=== PATIENT | male | born 1975 | race Caucasian/White ===

== ENCOUNTER → 2018-05-23 07:31 | Outpatient (CLI) | payer OTHER, MEDICAID, SELFPAY ==
[2018-05-23 15:41] LABS: Blood Urea Nitrogen 23 mg/dL (7-18); Calcium 8.9 mg/dL (8.5-10.1); Carbon Dioxide 25 mmol/L (21.0-32.0); Chloride 105 mmol/L (98-107); Estimated Glomerular Filt Rate 67 ml/min (>60); GFR (African American) 81 ML/MIN (>60); Glucose 108 mg/dL (74-106); Sodium 140 mmol/L (136-145)
== END ==
PROVIDERS: Visit Provider Physician Assistant
DX: I10 Essential (primary) hypertension (principal); M62.838 Other muscle spasm
CPT/HCPCS: 36415; 80048; 83735

== ENCOUNTER → 2018-06-26 16:32 | Outpatient (CLI) | payer OTHER, MEDICAID, SELFPAY ==
--- NOTE | 2018-06-26 | XR_ITS ---
XR chest 2V HISTORY: Cough and congestion ITS.REASON: VIRAL URI ORDERING PHYSICIAN: Kiara Bermudez PATIENT AGE: 42 years COMPARISON: 07/14/2017 FINDINGS: The cardiomediastinal silhouette and pulmonary vascularity are within normal limits. Minimal atelectatic changes are present in the left lung base. There are some fibrotic changes in the right upper lobe. Calcified granuloma is present in the right lower lobe. No acute bony anomalies. IMPRESSION: Mild left basilar atelectasis with chronic changes
[2018-06-26 16:48] LABS: Basophils % 0.7 % (0.1-2.0); Eosinophils # 0.1 K/mm3 (0.0-0.4); Eosinophils % 1.1 % (0.1-12.0); Hematocrit 44.7 % (42.0-52.0); Hemoglobin 15.3 g/dL (14.1-18.0); Lymphocytes # 1.6 K/mm3 (0.7-4.5); Lymphocytes % 27.1 K/mm3 (10-50); Mean Corpuscular HGB Conc 34.1 g/dL (31.8-35.4); Mean Corpuscular Hemoglobin 30.6 pg (27.0-31.2); Mean Corpuscular Volume 89.8 fl (80-94); Mean Platelet Volume 7.1 fl (7.4-10.4); Monocytes # 0.4 K/mm3 (0.1-1.0); Monocytes % 6.8 % (1.7-9.3); Neutrophils # 3.7 K/mm3 (1.8-7.8); Neutrophils % 64.3 % (37.0-80.0); Platelet Count 245 K/mm3 (142-424); Red Blood Count 4.98 M/mm3 (4.60-6.20); Red Cell Distribution Width 13.7 % (11.5-17.5); White Blood Count 5.8 K/mm3 (4.8-10.8)
[2018-06-26 17:03] LABS: Alanine Aminotransferase 44 U/L (12-78); Albumin Level 3.6 gm/dL (3.4-5.0); Albumin/Globulin Ratio 0.8 (1.1-1.8); Alkaline Phosphatase 81 U/L (46-116); Anion Gap 12.5 mEq/L (5-15); Aspartate Amino Transferase 23 U/L (15-37); Bilirubin,Total 0.5 mg/dL (0.2-1.0); Blood Urea Nitrogen 18 mg/dL (7-18); Calcium 9.2 mg/dL (8.5-10.1); Carbon Dioxide 27 mmol/L (21.0-32.0); Chloride 100 mmol/L (98-107); Creatinine,Serum 1.52 mg/dL (0.70-1.30); Estimated Glomerular Filt Rate 51 ml/min (>60); GFR (African American) 62 ML/MIN (>60); Globulin 4.4 gm/dl (1.3-3.2); Glucose 114 mg/dL (74-106); Potassium 3.5 mmoL/L (3.5-5.1); Sodium 136 mmol/L (136-145)
== END ==
PROVIDERS: PCP Nurse Practitioner Family; Visit Provider Nurse Practitioner Family
DX: Z00.00 Encounter for general adult medical examination without abnormal findings (principal); J06.9 Acute upper respiratory infection, unspecified; R05 Cough; I95.1 Orthostatic hypotension
CPT/HCPCS: 36415; 71046; 80053; 85025

== ENCOUNTER → 2018-06-29 15:21 | Outpatient (CLI) | payer OTHER, MEDICAID, SELFPAY ==
[2018-06-29 15:59] LABS: Alanine Aminotransferase 39 U/L (12-78); Albumin Level 3.3 gm/dL (3.4-5.0); Albumin/Globulin Ratio 0.8 (1.1-1.8); Alkaline Phosphatase 76 U/L (46-116); Anion Gap 11.2 mEq/L (5-15); Aspartate Amino Transferase 14 U/L (15-37); Bilirubin,Total 0.4 mg/dL (0.2-1.0); Blood Urea Nitrogen 17 mg/dL (7-18); Calcium 8.7 mg/dL (8.5-10.1); Carbon Dioxide 28 mmol/L (21.0-32.0); Chloride 105 mmol/L (98-107); Estimated Glomerular Filt Rate 56 ml/min (>60); GFR (African American) 68 ML/MIN (>60); Globulin 4.1 gm/dl (1.3-3.2); Glucose 95 mg/dL (74-106); Potassium 4.2 mmoL/L (3.5-5.1); Sodium 140 mmol/L (136-145); Total Protein,Serum 7.4 gm/dL (6.4-8.2)
== END ==
PROVIDERS: PCP Nurse Practitioner Family; Visit Provider Nurse Practitioner Family
DX: J06.9 Acute upper respiratory infection, unspecified (principal); R79.89 Other specified abnormal findings of blood chemistry
CPT/HCPCS: 36415; 80053

== ENCOUNTER → 2018-07-10 07:50 | Outpatient (CLI) | payer OTHER, MEDICAID, SELFPAY ==
[2018-07-10 15:29] LABS: Alanine Aminotransferase 40 U/L (12-78); Albumin Level 3.6 gm/dL (3.4-5.0); Albumin/Globulin Ratio 0.9 (1.1-1.8); Alkaline Phosphatase 77 U/L (46-116); Anion Gap 15.2 mEq/L (5-15); Aspartate Amino Transferase 16 U/L (15-37); Bilirubin,Total 0.5 mg/dL (0.2-1.0); Blood Urea Nitrogen 13 mg/dL (7-18); Calcium 8.7 mg/dL (8.5-10.1); Carbon Dioxide 25 mmol/L (21.0-32.0); Chloride 108 mmol/L (98-107); Creatinine,Serum 1.18 mg/dL (0.70-1.30); Estimated Glomerular Filt Rate 68 ml/min (>60); GFR (African American) 83 ML/MIN (>60); Globulin 3.8 gm/dl (1.3-3.2); Glucose 95 mg/dL (74-106); Potassium 4.2 mmoL/L (3.5-5.1); Sodium 144 mmol/L (136-145); Total Protein,Serum 7.4 gm/dL (6.4-8.2)
== END ==
LOC: LAB 07:52 → LAB.CARL 07-11 07:22
PROVIDERS: PCP Nurse Practitioner Family; Visit Provider Nurse Practitioner Family
DX: R79.89 Other specified abnormal findings of blood chemistry (principal)
CPT/HCPCS: 36415; 80053

== ENCOUNTER → 2018-07-28 09:31 | Outpatient (CLI) | payer OTHER, MEDICAID, SELFPAY ==
[2018-07-28 13:59] LABS: Alanine Aminotransferase 31 U/L (12-78); Albumin Level 3.4 gm/dL (3.4-5.0); Alkaline Phosphatase 73 U/L (46-116); Aspartate Amino Transferase 15 U/L (15-37); Bilirubin,Total 0.5 mg/dL (0.2-1.0); Blood Urea Nitrogen 13 mg/dL (7-18); Calcium 8.8 mg/dL (8.5-10.1); Carbon Dioxide 25 mmol/L (21.0-32.0); Chloride 107 mmol/L (98-107); Chol/HDL Ratio 3.4 (1-3.5); Cholesterol 143 mg/dL (140-200); Creatinine,Serum 1.07 mg/dL (0.70-1.30); Estimated Glomerular Filt Rate 77 ml/min (>60); GFR (African American) 93 ML/MIN (>60); Globulin 3.5 gm/dl (1.3-3.2); Glucose 100 mg/dL (74-106); HDL Cholesterol 42 mg/dL (27-67); LDL Cholesterol 84 mg/dL (0-130); Sodium 140 mmol/L (136-145); Total Protein,Serum 6.9 gm/dL (6.4-8.2); Triglycerides 87 mg/dL (30-200); VLDL Cholesterol 17 mg/dL (0-40)
== END ==
PROVIDERS: PCP Nurse Practitioner Family; Visit Provider Nurse Practitioner Family
DX: Z00.00 Encounter for general adult medical examination without abnormal findings (principal); I10 Essential (primary) hypertension; E78.2 Mixed hyperlipidemia
CPT/HCPCS: 36415; 80053; 80061

== ENCOUNTER → 2019-12-04 13:15 | Outpatient (CLI) | payer OTHER, SELFPAY ==
[2019-12-04 14:33] LABS: Alanine Aminotransferase 36 U/L (12-78); Albumin/Globulin Ratio 1.1 (1.1-1.8); Alkaline Phosphatase 85 U/L (46-116); Anion Gap 14.2 mEq/L (5-15); Aspartate Amino Transferase 20 U/L (15-37); Bilirubin,Total 0.4 mg/dL (0.2-1.0); Blood Urea Nitrogen 18 mg/dL (7-18); Calcium 9.2 mg/dL (8.5-10.1); Carbon Dioxide 28 mmol/L (21.0-32.0); Chloride 103 mmol/L (98-107); Chol/HDL Ratio 5.7 (1-3.5); Cholesterol 223 mg/dL (140-200); Creatinine,Serum 1.23 mg/dL (0.70-1.30); Estimated Glomerular Filt Rate 65 ml/min (>60); GFR (African American) 78 ML/MIN (>60); Globulin 3.6 gm/dl (1.3-3.2); Glucose 86 mg/dL (74-106); HDL Cholesterol 39 mg/dL (27-67); LDL Cholesterol 160 mg/dL (0-130); Potassium 4.2 mmoL/L (3.5-5.1); Sodium 141 mmol/L (136-145); Total Protein,Serum 7.6 gm/dL (6.4-8.2); Triglycerides 118 mg/dL (30-200); VLDL Cholesterol 24 mg/dL (0-40)
== END ==
PROVIDERS: Visit Provider Nurse Practitioner Family
DX: Z00.00 Encounter for general adult medical examination without abnormal findings (principal); E78.2 Mixed hyperlipidemia; I10 Essential (primary) hypertension
CPT/HCPCS: 36415; 80053; 80061

== ENCOUNTER → 2019-12-13 13:51 | Outpatient (CLI) | payer OTHER, SELFPAY ==
--- NOTE | 2019-12-13 13:59 | CT_ITS ---
PROCEDURE: CT CHEST WO CON CLINICAL INDICATION: RUL NODULE Follow-up pulmonary nodule COMPARISON: CXR2V XR chest 2V from 06/26/2018 TECHNIQUE: Axial images obtained with sagittal and coronal reformats. All CT scans at the facility use one or more dose reduction, viz: automated exposure control, ma/kV adjustment per patient size (including targeted exams where dose is matched to indication, i.e. head), or iterative reconstruction technique. FINDINGS: HEART AND MEDIASTINAL STRUCTURES: There is a mildly prominent pretracheal lymph node measuring 2.1 x 1.9 cm. LUNGS AND PLEURAL SPACES: Minimal atelectatic/fibrotic changes noted in the right upper lobe laterally. There is a calcified granuloma in the superior segment of the right lower lobe. Minimal atelectatic or fibrotic change noted in the right middle lobe medially. There is a faint nodular opacity in the left upper lobe laterally at 4 mm image 32 series 3. This is nonspecific. There is some patchy alveolar opacification in the left lower lobe. BONY STRUCTURES: No acute bony abnormalities apparent. UPPER ABDOMEN: Unremarkable. ADDITIONAL FINDINGS: There are few scattered small lymph nodes in the axilla in there is a small subcutaneous metallic density along the left lower chest wall anteriorly IMPRESSION: 1. Patchy infiltrate in the left lower lobe. 2. Calcified granuloma in the right upper lobe with scattered atelectatic or fibrotic changes. 3. Mildly prominent lymph node in the pretracheal region nonspecific. 3 to six-month follow-up may confirm short term stability Dictated by: Mihai Good MD 12/16/2019 08:00 Electronically signed by Mihai Good MD in [place] 12/16/2019 08:02
== END ==
PROVIDERS: PCP Nurse Practitioner Family; Visit Provider Nurse Practitioner Family
DX: R91.1 Solitary pulmonary nodule (principal)
CPT/HCPCS: 71250

== ENCOUNTER → 2020-01-21 06:25 | Outpatient (CLI) | payer OTHER, SELFPAY ==
--- NOTE | 2020-01-21 | CA_ITS ---
APPROVED REPORT Exam: Exercise Treadmill Technologist: gabriel campoverde, Ht: 5 ft 8 in Wt: 220 lbs BSA: 2.13 m2 HR: 74 bpm BP: 154/97 mmHg Indications: CP, SOB Medical History Medications: Asa,,,,, Lipitor,,,,, Bisprolol,,,,, RanTIDINE,,,,, Allergies: No known drug allergies Cardiac Risk Factors: HTN, Hyperlipidemia, FHX of CAD, Smoking Stress Test Details Test: Cesar HR Resting HR: 83 bpm Max Heart Rate (APMHR): 178 bpm Max HR Achieved: 157 bpm Target HR (85% APMHR): 151 bpm % of APMHR: 88 Recovery HR: 105 bpm BP Resting BP: 126/91 mmHg Max BP: 183/100 mmHg Recovery BP: 183.0/100.0 mmHg ECG Resting ECG: Sinus rhythm, RBBB Clinical Exercise duration: 10:32 min Highest Stage Achieved: Stage 4: 4.2 mph at 16% grade. Exercise capacity: 12.8 METs Stress ECG Conclusion Cesar Protocol completed. Test stopped due to SOB at peak exercise, which resolved during recovery. No chest pain. No ectopy noted. 1.5mm ST depression noted during recovery. Images to follow. Test Summary REST . . . . . . . Standing REST . . . . . . . Sitting REST 11:01 0.0 0.0 83 . 126/ 91 . . Stage 1 01:00 10.0 1.7 102 . . . . Stage 1 02:00 10.0 1.7 99 . . . . Stage 1 03:00 10.0 1.7 103 . 162/ 98 . . Stage 2 01:00 12.0 2.5 112 . . . . Stage 2 02:00 12.0 2.5 115 . . . . Stage 2 03:00 12.0 2.5 117 . 160/ 94 . . Stage 3 01:00 14.0 3.4 128 . . . . Stage 3 02:00 14.0 3.4 133 . . . . Stage 3 03:00 14.0 3.4 140 . 170/ 92 . . Stage 4 . . . . . . . Cardiolite injected Stage 4 01:00 16.0 4.2 155 . . . . Stage 4 01:32 16.0 4.2 156 . . . Stop exercise at 10:32 RECOVERY 01:00 0.0 0.0 136 . . . . RECOVERY 02:00 0.0 0.0 111 . . . . RECOVERY 03:00 0.0 0.0 108 . 183/100 . . RECOVERY 04:00 0.0 0.0 101 . 168/ 88 . . RECOVERY 04:59 0.0 0.0 96 . 158/ 90 . . Electronically signed by : Jacoby Chatterjee, 01/21/2020 19:58:49
--- NOTE | 2020-01-21 06:34 | NM_ITS ---
APPROVED REPORT Exam: Nuclear Stress Test Indication: Chest pain, SOB, HTN, High cholesterol, Former tobacco use, Family history Patient Location: Outpatient Stress Tech: Jodi Huang [place] Tech:Kasey Zee, ARRT, RT (R)(N) Ht: 5 ft 8 in Wt: 220 lbs BSA: 2.13 m2 BMI: 33.4 History: Chest pain, SOB, HTN, High cholesterol, Former tobacco use, Family history Procedure: Patient exercised on Cesar protocol 10:32 minutes and sec, resting heart rate 74 bpm, resting blood pressure 126/91 mmHg, with exercise maximum heart rate achived was 157 bpm which is Greater than 85 % of the maximum predicted heart rate and blood pressure was 183/100 mmHg. Test was stopped due to SOB. Patient denied any complaint of chest pain. Patient has Good exercise capacity, achieved 12.8 METs of workload on treadmill, the blood pressure response to exercise was Adequate. Electrocardiogram Resting electrocardiogram showed sinus rhythm, with exercise there is less than 1.[address] segment depression noted from the baseline EKG. The EKG portion of the exercise Myoview is negative for ischemia. Cardiac Stress and Resting SPECT Images: Cardiac Stress and Resting SPECT images were obtained using technetium 99m Myoview 30.05 mCi stress and 10.24 mCi at rest. Gated SPECT with analysis of segmental wall motion and calculation of the ejection fraction also done. Cardiac stress and resting SPECT images show mild fixed defect at the apex with normal coronary gated SPECT is likely secondary to soft tissue attenuation, no reversible ischemia seen. Computer derived ejection fraction is 52% with no regional wall motion abnormality, right ventricle is normal size and contractility. Conclusion: 1. The EKG portion of the exercise Myoview is negative for ischemia, patient has good exercise capacity achieved 12.8 mets of workload on treadmill, the blood pressure response to exercise was adequate, there was no exercise-induced chest discomfort. 2. No scintigraphic evidence of reversible ischemia seen, computer derived ejection fraction 52% with no regional wall motion abnormality, right ventricle is normal size and contractility 3. Likely normal exercise Myoview study. Electronically signed by : Jacoby Chatterjee, 01/21/2020 20:02:03
--- NOTE | 2020-01-21 07:19 | HMH.ITSHM ---
Current Home Medications as stated by this patient Herminio Christopher or community service representative. []RANITADINE LISINOPRIL IBUPROFEN BISOPROLOL ATORVASTATIN ASA
== END ==
PROVIDERS: PCP Nurse Practitioner Family; Visit Provider Nurse Practitioner Family
DX: R06.09 Other forms of dyspnea (principal)
CPT/HCPCS: 78452; 93017; A9502

== ENCOUNTER → 2020-01-25 13:59 | Outpatient (CLI) | payer OTHER, SELFPAY | PROVIDERS: PCP Nurse Practitioner Family; Visit Provider Nurse Practitioner Family | DX: R06.09 Other forms of dyspnea (principal) | CPT/HCPCS: 94060; 94726; 94729 ==

== ENCOUNTER 2020-02-24 20:39 | Emergency (ER) | payer OTHER, SELFPAY ==
[2020-02-24 20:53] VITALS: BP 130/70; PULSE 91; RESP 20; TEMP 36.8; O2SAT 99; BMI 32.3
--- NOTE | 2020-02-24 21:27 | HMH.EDUTC ---
[facility] [place] Clinical Impression: Finger laceration Qualifiers: Encounter type: initial encounter Finger: ring finger Damage to nail status: without damage Foreign body presence: without foreign body Laterality: left Qualified Code(s): S61.215A - Laceration without foreign body of left ring finger without damage to nail, initial encounter Disposition: Home, Self-Care Condition on Discharge: Good Instructions: DI for Laceration Repair -- Simple, DI for Laceration Repair With Dermabond Additional Instructions: Keep the wound clean and dry. Watch the for signs of infection, such as redness, swelling, drainage, fever. etc. Take tylenol or ibuprofen for pain. Follow up with your regular doctor. GO TO THE ER FOR ANY WORSENING SYMPTOMS OR CONCERNS. Referrals: July Albarran PA [Primary Care Provider] - Time of Disposition: 21:30 Medical Decision Making - Medical Records Medical records reviewed: No: I reviewed the patient's medical records. - Anibal Inquiry Pt receiving controlled substance: No Vital Signs: 02/24/20 20:53 Temperature 98.3 F Temperature Source Oral Pulse Rate [Right Brachial] 91 H Respiratory Rate 20 Blood Pressure [Right Arm] 130/70 Blood Pressure Mean [Right Arm] 90 Blood Pressure Source [Right Arm] Automatic Cuff Blood Pressure Position [Right Arm] Sitting 02 Sat by Pulse Oximetry 99 Oxygen Delivery Method Room Air [facility] [place] H[place] - General Stated complaint: AO 02/23 @ 1999 lac to left ring finger Time Seen by Provider: 02/24/20 20:55 Mode of Arrival: Ambulatory Source of Information: Patient Limitations: No Limitations Description of Symptoms (Recalled from Triage Doc. by RN): LACERATION TO LEFT RING FINGER HEENT Symptoms (Recalled from RN notes): No Resp Symptoms (Recalled from RN notes): No Skin Symptoms (Recalled from RN notes): Yes MS Symptoms (Recalled from RN notes): No Functional Status (Recalled from RN notes): WNL - History of Present Illness Provider Complaint: He was carrying some aluminum siding when he slipped and fell in mud. When he fell, he came down on a piece of the siding and it cut his left ring finger. He has been bleeding and he had trouble stopping it. - Related Data Home Medications Medication Instructions Recorded Confirmed albuterol sulfate 90 mcg/actuation 1 puff INHALATION QID 02/04/20 02/04/20 aerosol inhaler amlodipine 5 mg tablet 5 mg PO tab 02/04/20 02/04/20 budesonide-formoterol HFA 80 g INHALATION 02/04/20 02/04/20 mcg-4.5 mcg/actuation aerosol inhaler cetirizine 10 mg tablet 10 mg PO tab 02/04/20 02/04/20 fluticasone propionate 50 g INTRANASAL 02/04/20 02/04/20 mcg/actuation nasal spray,suspension omeprazole 20 mg capsule,delayed 20 mg PO cap 02/04/20 02/04/20 release Previous Rx's Medication Instructions Recorded atorvastatin 20 mg tablet 20 mg PO QDAY #90 tab 01/02/18 Allergies Allergy/AdvReac Type Severity Reaction Status Date / Time No Known Allergies Allergy Verified 02/04/20 09:07 - Worker's Comp Is this a Worker's Comp case?: No [facility] History - Hepatitis A Screen Drug use history?: No High risk sexual behaviors?: No History of sexually transmitted infection?: No Currently employed?: No Childcare worker?: No Do you have indoor plumbing?: Yes Do you have electricity?: Yes Attestation statement:: This patient has been screened for Hepatitis A risk factors. I have reviewed the patient's past medical history: Yes Medical History: Reports:: Gastroesophageal Reflux Disease(GERD), Hyperlipidemia, Hypertension Comment: ERLINDA Other Surgeries: Yes: Hernia Repair - Social History Smoking Status: Never smoker Alcohol Intake: never Alcohol Intake Frequency:: other Substance Use Type: denies use Occupational Status: other Household Members: family Family Hx:: Diabetes, Hypertension, Coronary Artery Disease ROS Obtained: Yes All systems reviewed & no additional complaints - C
[2020-02-24 21:38] VITALS: BP 130/70; PULSE 91; RESP 20; TEMP 36.8; O2SAT 99
== END 2020-02-24 21:39 | disposition home or self-care (01) ==
PROVIDERS: Emergency Provider Nurse Practitioner Family; PCP Physician Assistant
DX: S61.215A Laceration without foreign body of left ring finger without damage to nail, initial encounter (principal); W01.0XXA Fall on same level from slipping, tripping and stumbling without subsequent striking against object, initial encounter; Y92.89 Other specified places as the place of occurrence of the external cause; I10 Essential (primary) hypertension; K21.9 Gastro-esophageal reflux disease without esophagitis; E78.5 Hyperlipidemia, unspecified
CPT/HCPCS: 12001; 99201

== ENCOUNTER 2020-05-03 12:51 | Emergency (ER) | payer OTHER, SELFPAY ==
[2020-05-03 12:53] VITALS: BP 128/78; PULSE 70; RESP 16; TEMP 37.1; O2SAT 98; BMI 32.5
--- NOTE | 2020-05-03 13:08 | XR_ITS ---
PROCEDURE: XR WRIST LT MIN 3V CLINICAL INDICATION: fall Posttraumatic pain COMPARISON: No exams were available for comparison FINDINGS: Faint longitudinal lucency is present at the distal radius just medial to midline consistent with a nondisplaced fracture. There also appears to be a nondisplaced transverse component better detected on the forearm film. The distal ulna has an unremarkable appearance. No other significant anomalies. IMPRESSION: Nondisplaced distal radial fracture with intra-articular extension suspected. CT may confirm Dictated by: Mihai Good MD 05/04/2020 08:44 Electronically signed by Mihai Good MD in [place] 05/04/2020 08:44
--- NOTE | 2020-05-03 13:08 | XR_ITS ---
PROCEDURE: XR FOREARM LT 2V CLINICAL INDICATION: fall Posttraumatic pain COMPARISON: XR WRIST LT MIN 3V from 05/03/2020 FINDINGS: There is a faint longitudinal lucency involving the distal radius just medial to midline which extends to the articular surface suspicious for nondisplaced fracture. There is also a nondisplaced transverse component. CT may confirm. The joint spaces are well-preserved. No significant degenerative/arthritic changes. No erosive changes evident. Other findings:None. IMPRESSION: Nondisplaced distal radial fracture with suggestion of an intra-articular component. CT may confirm Dictated by: Mihai Good MD 05/04/2020 08:43 Electronically signed by Mihai Good MD in [place] 05/04/2020 08:43
--- NOTE | 2020-05-03 13:09 | XR_ITS ---
PROCEDURE: XR HIP LT 2-3V W/PELVIS CLINICAL INDICATION: fall Posttraumatic pain COMPARISON: No exams were available for comparison FINDINGS: No fracture or dislocation is evident. No significant degenerative change. No lytic or blastic change. Unremarkable soft tissues. IMPRESSION: No acute findings. Dictated by: Mihai Good MD 05/04/2020 08:40 Electronically signed by Mihai Good MD in [place] 05/04/2020 08:40
--- NOTE | 2020-05-03 13:09 | XR_ITS ---
PROCEDURE: XR CHEST 2V CLINICAL HISTORY: fall Posttraumatic pain COMPARISON: CXR CHEST(2 VIEWS-NOT PORTABLE) from 07/14/2017 CXR2V XR chest 2V from 06/26/2018 CT CHEST WO CON from 12/13/2019 FINDINGS: The cardiomediastinal silhouette and pulmonary vascularity are within normal limits. The lungs are clear without infiltrates, suspicious nodules, or pleural effusions. No acute bony abnormalities. IMPRESSION: No acute findings. Dictated by: Mihai Good MD 05/04/2020 08:44 Electronically signed by Mihai Good MD in [place] 05/04/2020 08:44
--- NOTE | 2020-05-03 14:58 | HMH.EDFALL ---
ED Disposition Clinical Impression: Multiple contusions Disposition: Home, Self-Care Condition on Discharge: Good Instructions: How to Prevent Falls Referrals: Kiara Bermudez APRN [Primary Care Provider] - - Critical Care Critical Care Time: No Attestation: On 05/03/20, the high probability of a clinically significant, sudden or life threatening deterioration of the following system(s) required my full and direct attention, intervention and personal management. The time I documented below is in addition to time spent performing reported procedures but includes the following listed in this critical care notation. Medical Decision Making - Medical Records Medical records reviewed: Yes: I reviewed the patient's medical records. - Anibal Inquiry Pt receiving controlled substance: No Vital Signs: 05/03/20 12:53 Temperature 98.7 F Temperature Source Oral Pulse Rate [Left Radial] 70 Respiratory Rate 16 Blood Pressure [Right Arm] 128/78 Blood Pressure Mean [Right Arm] 94 Blood Pressure Position [Right Arm] Sitting 02 Sat by Pulse Oximetry 98 Oxygen Delivery Method Room Air - Lab Data Lab results reviewed: Yes: I reviewed the patient's lab results. Orders (Tests/Meds): ED MEDICATIONS Discontinued Medications Generic Name Dose Route Start Last Admin Trade Name Kaiserq PRN Reason Stop Dose Admin Ibuprofen 600 mg 05/03/20 13:28 05/03/20 13:29 Motrin 600mg Tablet PO 05/03/20 13:29 600 mg ONCE ONE Administration ORDERS Category Date Time Status Forearm XR left 2 views [XR forearm LT 2V] Stat Exams 05/03/20 13:08 Taken XR chest 2V Stat Exams 05/03/20 13:09 Taken XR hip LT 2-3V w/pelvis Stat Exams 05/03/20 13:09 Taken XR wrist LT min 3V Stat Exams 05/03/20 13:08 Taken - Radiology Data #1 Image(s): Chest, Forearm, Wrist, Hip Preliminary Findings: Normal/NAD Fall HPI - General Chief Complaint: Fall Stated Complaint: AO 05/03/20 Fell on concrete, l arm and hip injury Time Seen by Provider: 05/03/20 14:58 Mode of Arrival: Ambulatory Source of Information: Patient Limitations: No Limitations Description of Symptoms (Recalled from ER Triage Doc. by RN): to ed per pvt car pt states fell approx 6ft off a pontoon onto concrete landing on lt side, c/o lt arm pain, lt hip and lt side rib pain. pt denies any loc. pt ambulatory states pain in hip with ambulation. - History of Present Illness HPI Narrative: 44-year-old gentleman presents the ED after a fall. Earlier today he was on a pontoon boat and fell a pontoon boat onto a cement deck. He landed on his left side. Patient is complaining about left-sided rib pain at midclavicular line. Patient is also complaining about left forearm pain and wrist pain. He is also complain about left hip pain as well. He rates the pain on all these injuries as 4 out of 10 classifies him as sharp. He states exacerbating factors include movement and relieving factors include rest. Patient has no obvious signs of trauma.Patient denies any recent cough or shortness of breath, patient denies any sore throat or headache, patient denies any loss of taste or smell, patient denies any malaise or fatigue, patient denies any abdominal pain nausea vomiting or diarrhea. - Related Data Home Medications Medication Instructions Recorded Confirmed albuterol sulfate 90 mcg/actuation 1 puff INHALATION QID 02/04/20 04/30/20 aerosol inhaler budesonide-formoterol HFA 80 g INHALATION 02/04/20 04/30/20 mcg-4.5 mcg/actuation aerosol inhaler cetirizine 10 mg tablet 10 mg PO tab 02/04/20 04/30/20 fluticasone propionate 50 g INTRANASAL 02/04/20 04/30/20 mcg/actuation nasal spray,suspension amlodipine 10 mg tablet 10 mg PO DAILY tab 04/30/20 04/30/20 doxycycline monohydrate 100 mg 100 mg PO DAILY cap 04/30/20 04/30/20 capsule famotidine 20 mg tablet 20 mg PO DAILY tab 04/30/20 04/30/20 losartan 100 mg tablet 100 mg PO DAILY tab 04/30/20
--- NOTE | 2020-05-03 15:10 | PC.NURSE ---
velcro wrist splint applied lt wrist
[2020-05-03 15:29] VITALS: BP 148/74; PULSE 78; RESP 16; TEMP 36.6; O2SAT 98
== END 2020-05-03 15:31 | disposition home or self-care (01) ==
PROVIDERS: Emergency Provider Family Medicine; PCP Nurse Practitioner Family
DX: S63.502A Unspecified sprain of left wrist, initial encounter (principal); W01.0XXA Fall on same level from slipping, tripping and stumbling without subsequent striking against object, initial encounter; Y92.89 Other specified places as the place of occurrence of the external cause; M25.552 Pain in left hip; Z79.899 Other long term (current) drug therapy; J45.909 Unspecified asthma, uncomplicated; K21.9 Gastro-esophageal reflux disease without esophagitis; E78.5 Hyperlipidemia, unspecified; I10 Essential (primary) hypertension
CPT/HCPCS: 29125; 71046; 73090; 73110; 73502; 99283

== ENCOUNTER 2020-05-05 15:30 | Outpatient (RCR) | payer OTHER, SELFPAY | END 2020-05-05 16:00 | disposition home or self-care (01) | LOC: OT 15:30 | PROVIDERS: Visit Provider Internal Medicine Adolescent Medicine | DX: M25.532 Pain in left wrist (principal); S62.102A Fracture of unspecified carpal bone, left wrist, initial encounter for closed fracture | CPT/HCPCS: 97763 ==

== ENCOUNTER → 2020-05-07 15:37 | Outpatient (CLI) | payer OTHER, SELFPAY ==
--- NOTE | 2020-05-07 15:55 | CT_ITS ---
PROCEDURE: CT WRIST LT WO CON CLINICAL HISTORY: LEFT WRIST FX Injury with pain, possible wrist fracture. COMPARISON: XR WRIST LT MIN 3V from 05/03/2020 TECHNIQUE: Axial images obtained with sagittal and coronal reformats. All CT scans at the facility use one or more dose reduction, viz: automated exposure control, ma/kV adjustment per patient size (including targeted exams where dose is matched to indication, i.e. head), or iterative reconstruction technique. FINDINGS: There is a nondisplaced longitudinal fracture through the distal aspect of the radius which involves the distal articular surface just slightly along the ulnar aspect of the distal radius. There is an additional nondisplaced fracture along the ulnar aspect of the distal radius just lateral to the radial ulnar junction. Incidental note is made of a small cyst of the lunate. IMPRESSION: Nondisplaced fracture of the distal radius as described above with intra-articular extension Dictated by: Mihai Good MD 05/08/2020 12:23 Electronically signed by Mihai Good MD in [place] 05/08/2020 12:23
== END ==
PROVIDERS: PCP Nurse Practitioner Family; Referring Provider Internal Medicine Adolescent Medicine; Visit Provider Internal Medicine Adolescent Medicine
DX: S62.102A Fracture of unspecified carpal bone, left wrist, initial encounter for closed fracture (principal)
CPT/HCPCS: 73200

== ENCOUNTER → 2020-05-28 08:59 | Outpatient (CLI) | payer OTHER, SELFPAY ==
--- NOTE | 2020-05-28 09:03 | XR_ITS ---
PROCEDURE: XR HAND LT MIN 3V CLINICAL INDICATION: hand pain Limited movement of fingers since putting of the cast. COMPARISON: No exams were available for comparison FINDINGS: The wrist and portion of the hand is immobilized in the cast, which is obscuring the bony details. No fracture or dislocation. No lytic or blastic change. There is normal mineralization. The joint spaces are well-preserved. No significant degenerative/arthritic changes. No erosive changes evident. Other findings:The fingers are seen persistently in mild flexion. IMPRESSION: 1. No fracture, bony destruction or dislocation is demonstrated. Dictated by: Angela Ramey 05/28/2020 17:56 Electronically signed by Angela Ramey in [place] 05/28/2020 17:56
--- NOTE | 2020-05-28 09:03 | XR_ITS ---
PROCEDURE: XR WRIST LT MIN 3V CLINICAL INDICATION: wrist fx COMPARISON: XR WRIST LT MIN 3V from 05/03/2020 FINDINGSNo fracture or dislocation. No lytic or blastic change. There is normal mineralization.: The wrist is placed in a cast, bony details are obscured by the overlying cast. A subtle fracture line/lucency is again seen medial to midline in the distal left radius. There is bony demineralization. The joint spaces are well-preserved. No significant degenerative/arthritic changes. No erosive changes evident. Other findings:None. IMPRESSION: 1. A subtle intra-articular healing fracture is again seen medially in the distal left radius. 2. Osteopenia. Dictated by: Angela Ramey 05/28/2020 10:31 Electronically signed by Angela Ramey in [place] 05/28/2020 10:31
== END ==
PROVIDERS: PCP Nurse Practitioner Family; Visit Provider Orthopaedic Surgery
DX: S52.502A Unspecified fracture of the lower end of left radius, initial encounter for closed fracture (principal)
CPT/HCPCS: 73110; 73130

== ENCOUNTER 2020-06-02 08:57 | Outpatient (RCR) | payer OTHER, SELFPAY | END 2020-06-02 09:41 | disposition home or self-care (01) | LOC: OT 08:57 | PROVIDERS: Visit Provider Orthopaedic Surgery | DX: S52.502D Unspecified fracture of the lower end of left radius, subsequent encounter for closed fracture with routine healing (principal) | CPT/HCPCS: 97763 ==

== ENCOUNTER → 2020-06-05 15:55 | Outpatient (CLI) | payer OTHER, SELFPAY ==
--- NOTE | 2020-06-05 15:58 | XR_ITS ---
PROCEDURE: XR WRIST LT MIN 3V CLINICAL INDICATION: wrist pain COMPARISON: CR XR WRIST LT MIN 3V from 05/03/2020 CR XR WRIST LT MIN 3V from 05/28/2020 FINDINGS: No fracture or dislocation. No lytic or blastic change. There is normal mineralization. The joint spaces are well-preserved. No significant degenerative/arthritic changes. No erosive changes evident. Other findings:Previous radiograph of 05/03/2020 demonstrated a nondisplaced fracture of the distal radius. That fracture line is no longer apparent. IMPRESSION: No acute findings. Dictated b Mihai Good MD 06/05/2020 16:14 Mihai Good MD in [place] 06/05/2020 16:14
== END ==
PROVIDERS: PCP Nurse Practitioner Family; Visit Provider Orthopaedic Surgery
DX: S52.502A Unspecified fracture of the lower end of left radius, initial encounter for closed fracture (principal)
CPT/HCPCS: 73110

== ENCOUNTER → 2020-06-26 14:46 | Outpatient (POV) | payer OTHER, SELFPAY ==
[2020-06-26 15:01] VITALS: BP 132/88; PULSE 85; RESP 18; O2SAT 98; BMI 33.4
--- NOTE | 2020-06-26 15:53 | HMH.PMCON ---
Assessment and Plan (1) CRPS (complex regional pain syndrome type I) Current visit: Yes Status: Chronic Qualifiers: Complex regional pain syndrome affected site: upper extremity Laterality: left Qualified Code(s): G90.512 - Complex regional pain syndrome I of left upper limb Category: Medical Code(s): G90.50 - Complex regional pain syndrome I, unspecified - Assessment and plan all Dx Assessment and Plan for all problems:: I discussed with the patient the need for multimodality treatment in regards to CRPS. We will start him on gabapentin 300 mg 1 p.o. 3 times daily. We will start this at nighttime and titrate up as tolerated. We will also continue his occupational therapy and start with stellate ganglion blocks to help with the pain. I will follow-up with him after his first block reassess his symptoms at that time he has been instructed to call the office if he has any issues prior to his next appointment. Dr. Whitfield has reviewed this note and agrees with this plan of care. This note was dictated using voice recognition software and may contain errors or omissions HPI - Data of Consult Consult date: 06/26/20 Requesting Physician: Isi Albarado APRN Primary Care Provider: Kiara Bermudez APRN - Consult Narrative Reason for consult: CRPS left upper extremity History of present illness: Mr. White is a 44 year old male who presents today for consultation regards to CRPS left upper extremity. This came after a fracture on May 03 of this year. Patient fractured his wrist on the left side. He then was cast. Patient states he had swelling and had his cast replaced several times and then he was splinted. Patient has notable color changes to his left upper extremity. It is very red in comparison to his right upper extremity. It is also very hot in comparison to his right upper extremity and it is notably swollen. Patient states that he has decreased range of motion with his left wrist and hand along with decreased sensation with his left wrist and hand. He has difficulty with grasping objects. Patient was diagnosed with early signs of CRPS from his orthopedic surgeon. Patient was then sent to occupational therapy. Patient's primary care physician then sent him to us for consultation. He rates his pain today a 5 out of 10. He has numbness and tingling all throughout his left hand and fingers. He states occupational therapy has been very beneficial. CC: Isi Albarado APRN [facility] History I have reviewed the patient's past medical history: Yes Medical History: Reports:: Asthma, Gastroesophageal Reflux Disease(GERD), Hyperlipidemia, Hypertension *Have you ever received a pneumonia vaccine?: Yes *Have you received a flu vaccine this season?: Yes Other Medical History: Reports: Arthritis Other Surgeries: Yes: Hernia Repair Amputation: No Fractures: No - *Social History Smoking Status: Never smoker Alcohol Intake: never Alcohol Intake Frequency:: other Substance Use Type: denies use *Occupational Status:: other Housing: house Household Members: spouse *Travel in the last 8 weeks: None Family Hx:: Unable to obtain Review of Systems - Review of Systems ROS General: no recent weight change, no fever, no sleep disturbances Respiratory: no cough, no shortness of air, no recurring pulmonary infections Cardiovascular/Peripheral Vascular: No chest pain, No palpitations, no edema, no shortness of breath. Gastrointestinal: no new onset incontinence, normal bowel movements reported Genitourinary: no new onset incontinence Musculoskeletal: Left upper extremity pain Psychiatric: normal mood/ affect, Neurological: Weakness left upper extremity, [denies new onset balance issues] Meds Home Medications Medication Instructions Recorded Confirmed Type atorvastatin 20 mg tablet 20 mg PO QDAY #90 tab 01/02/18 06/05/20 Rx albuterol sulfate 90 mcg/actuation 1 puff INHALATION QID 02/04/20 06/05/20
== END ==
PROVIDERS: PCP Nurse Practitioner Family; Visit Provider Clinical Nurse Specialist Family Health
DX: G90.512 Complex regional pain syndrome I of left upper limb (principal)
CPT/HCPCS: 99202

== ENCOUNTER → 2020-07-03 08:23 | Outpatient (CLI) | payer OTHER, SELFPAY ==
--- NOTE | 2020-07-03 08:25 | XR_ITS ---
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 The cast has been removed. I do not definitely identify a fracture or healing fracture of the distal radius. The carpal bones appear intact. The pronator quadratus fat pad is well seen which is a normal finding tending to rule out fluid within the wrist joint. 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 Eriberto Sidhu MD 07/03/2020 13:15 Dr. Eriberto Sidhu MD in [place] 07/03/2020 13:15
== END ==
PROVIDERS: PCP Nurse Practitioner Family; Visit Provider Orthopaedic Surgery
DX: S52.502A Unspecified fracture of the lower end of left radius, initial encounter for closed fracture (principal)
CPT/HCPCS: 73110

== ENCOUNTER 2020-07-11 09:47 | Day surgery (SDC) | payer OTHER, SELFPAY ==
[2020-07-11 10:14] VITALS: BP 150/101; PULSE 62; RESP 18; TEMP 36.3; O2SAT 99; BMI 32.3
[2020-07-11 10:27] VITALS: BP 140/78; PULSE 85; RESP 18
[2020-07-11 10:29] VITALS: BP 138/88; PULSE 85; RESP 18; O2SAT 98
--- NOTE | 2020-07-11 10:33 | P.PCN_ITS ---
- Procedure Date: 07/11/20 Time: 10:33 Anesthesiologist:: Kristian Whitfield MD Complications:: None Pre-procedure Diagnosis:: Complex regional pain syndrome type I of the left upper extremity status post left wrist fracture Post-procedure Diagnosis:: Same Indications for Procedure:: This patient is a pleasant 44-year-old white male who has developed complex regional pain syndrome type I of the left upper extremity after left wrist fracture in April of this year. He has autonomic changes including swelling, color changes, temperature changes and increased pain to the left upper extremity. He has developed CRPS symptoms and continues with physical therapy however has increased pain. We will do a left stellate ganglion block to help with his pain symptoms to be followed by physical therapy today. Procedure Details:: Left stellate ganglion block under fluoroscopy Informed consent was obtained the risk and benefits of the procedure were explained to the patient. Patient was taken to the procedure room. The left neck was prepped using ChloraPrep. A 25-gauge needle was used contacted a transverse process of the C7 vertebral body on the left side. Needle placement was confirmed with dye. After this we injected 20 mils lidocaine 1.5% and Depo- Medrol 40 mg into the area of the left stellate ganglion. Patient tolerated procedure well with no complications. Patient was sent to physical therapy approximately 15 minutes after the procedure. Plan and Disposition:: We will follow-up with him in 1 week. We will reevaluate his symptoms we will plan on repeat left stellate ganglion block again to be followed by physical therapy. He is to continue with his gabapentin 300 mg 3 times a day.
[2020-07-11 10:35] VITALS: BP 149/99; PULSE 68; RESP 18; O2SAT 99
== END 2020-07-11 10:35 | disposition home or self-care (01) ==
LOC: SC.PAINP 09:49
PROVIDERS: PCP Nurse Practitioner Family; Visit Provider Anesthesiology
DX: G90.50 Complex regional pain syndrome I, unspecified (principal); S61.21 Laceration without foreign body of finger without damage to nail; I10 Essential (primary) hypertension; J45.909 Unspecified asthma, uncomplicated; K21.9 Gastro-esophageal reflux disease without esophagitis
CPT/HCPCS: 64510; J1040; Q9966

== ENCOUNTER 2020-07-11 10:00 | Outpatient (RCR) | payer OTHER, SELFPAY ==
--- NOTE | 2020-06-10 14:28 | HMH.OTOPEV ---
OT Inpatient Evaluation Rehab OT Outpatient Eval Start: 06/10/20 13:40 Freq: Status: Active Protocol: Document 06/10/20 13:40 KALENELEONORA (Rec: 06/10/20 14:14 LCELEONORA [id number]) Electronically Signed By Thu Presley OT 06/10/20 13:40 Outpatient Therapy Subjective History Subjective History 44 year old male had a fall on 05/03/20 off a pontoon resulting in pain in L hand. Patient went to ER that date with ER physician stated, no fx noted. Patient left ER and wore no splint or cast for several days. Patient verbalized being reached out by PCP 2* having a non- displaced left distal radius fracture. Cast donned on and removed on 06/02/20. Patient stated the cast was not staying on properly and requested it to be removed. On 05/08/20, Patient referred to [facility] OP services for wrist cock up splint for L hand and provided one. Since then Patient has been having consistent pain, swelling, discolor of L hand and skin peeling. Chief Complaint Pain Symptom Type Throb,Numbness Symptoms Relieved By Nothing Symptoms Aggravated By Physical Activity Prior Functional Limitations None Current Functional Limitations Lifting Symptom Description Constant and Continuous Level of pain today (0-10) 5 Pain scale - at its best (0-10) 5 Pain scale - at its worst (0-10) 10 Wrist/Hand Eval Palpation Tenderness/Visual Exam Wrist pain left tenderness wrist exam standard left Wrist swelling left Wrist/Hand Palpation Findings Tenderness Wrist/Hand Palpation Overall Comment 2+ pitty edema on L hand Wrist Range of Motion Left Wrist Extension Active Range of Motion ( 20 degrees) Wrist Flexion Active Range of Motion ( 20 degrees) Wrist Radial Deviation Active Range of 18 Motion (degrees) Wrist Ulnar Deviation Active Range of 0 Motion (degrees) Wrist Manual Muscle Testing Left Wrist Extension Strength Grade 3- Fair- Wrist Flexion Strength Grade 3- Fair- Forearm Supination Strength Grade 3- Fair- Forearm Pronation Strength Grade
== END 2020-07-11 12:00 | disposition home or self-care (01) ==
LOC: OT 10:00
PROVIDERS: PCP Nurse Practitioner Family; Visit Provider Orthopaedic Surgery
DX: S52.502A Unspecified fracture of the lower end of left radius, initial encounter for closed fracture (principal)
CPT/HCPCS: 97010; 97014; 97034; 97035; 97110; 97140; 97165; G0283

== ENCOUNTER → 2020-07-24 10:49 | Outpatient (POV) | payer OTHER, SELFPAY ==
[2020-07-24 11:57] VITALS: BP 132/72; PULSE 74; RESP 18; O2SAT 98; BMI 33.4
--- NOTE | 2020-07-24 12:14 | HMH.PAINSOAP ---
[facility] Pain Management SOAP Note Subjective:: Patient is a 44-year-old white male who presents today for follow-up after a stellate ganglion block. Patient has been treated for a CRPS type I of his left upper extremity status post left wrist fracture. Patient says that he got approximately 70% relief following his injection. He says that he is continuing to get relief, however, he can feel that his pain is starting to return. He does rate his pain a 4 out of 10 today. He is currently still undergoing physical therapy. 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 He says that he has been more functional during physical therapy. Patient reports that his 3rd and 4th fingers are better, as well. He would like to discuss a repeat stellate ganglion block. Review of Systems General: No recent weight changes, no fever, no sleep disturbances Respiratory: No cough, no shortness of air, no recurring pulmonary infections Cardiovascular/peripheral vascular: No chest pain, no palpitations, no edema, no shortness of breath Gastrointestinal: No new onset incontinence, normal bowel movements reported Genitourinary: No new onset incontinence Musculoskeletal: Left hand pain Psychiatric: Normal mood/affect Neurological: [Denies weakness in extremities], [denies balance issues] Objective:: Physical exam General: Alert and oriented x3, no acute distress, pleasant and cooperative, [on room air] Lungs: Respirations even and unlabored, symmetrical chest expansion Eyes: PERRL Musculoskeletal: Flexion and extension of cervical spine somewhat guarded secondary to pain, deep tendon reflexes normal, strength in upper and lower extremities [5/5], normal gait noted Neurological: Speech clear, mold 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 His pain is starting to return. Patient is still doing physical therapy and doing well. We will plan for a repeat stellate ganglion block to left upper extremity. He will continue with PT. We will follow up with him after his injection to reassess his symptoms. He has been instructed to contact the clinic if he has any concerns before his next appointment. The patient and I specifically discussed risk factors for COVID19. These risks include, but are not limited to age greater than 60, heart or lung disease, diabetes, immunosuppression, and travel. We also discussed NSAIDs may worsen COVID19 infection or symptoms. Patient should not use NSAIDs to treat COVID19 signs or symptoms. Patient was also informed that any type of corticosteroid of any form (oral or injection) will decrease the patient's immune system response and may increase the likelihood of COVID19 infection and symptoms[address] Dr. Whitfield has reviewed this note and agrees with this plan of care. This note was dictated using voice recognition software and make contain errors or omissions. [facility] History I have reviewed the patient's past medical history: Yes Medical History: Reports:: Asthma, Gastroesophageal Reflux Disease(GERD), Hyperlipidemia, Hypertension Denies:: Cancer, Diabetes Mellitus Type 1, Diabetes Mellitus Type 2, MRSA, Seizures *Have you ever received a pneumonia vaccine?: Yes *Have you received a flu vaccine this season?: Yes Other Medical History: Reports: Arthritis Other Surgeries: Yes: Hernia Repair Amputation: No Fractures: No - *Social History Smoking Status: Never smoker Alcohol Intake: never Alcohol Intake Frequency:: other Substance Use Type: denies use *Occupational Status:: other Housing: house Household Members: spouse *Travel in the last 8 weeks: None Family Hx:: Unable to obtain
== END ==
PROVIDERS: PCP Nurse Practitioner Family; Visit Provider Clinical Nurse Specialist Family Health
DX: G90.512 Complex regional pain syndrome I of left upper limb (principal)
CPT/HCPCS: 99212

== ENCOUNTER 2020-08-01 13:44 | Day surgery (SDC) | payer OTHER, SELFPAY ==
[2020-08-01 13:49] VITALS: BP 150/98; PULSE 72; RESP 20; TEMP 36.2; O2SAT 98; BMI 33.4
[2020-08-01 13:56] VITALS: BP 132/88; PULSE 72; RESP 18; O2SAT 98
[2020-08-01 13:58] VITALS: BP 138/88; PULSE 85; RESP 18; O2SAT 98
--- NOTE | 2020-08-01 14:03 | P.PCN_ITS ---
- Procedure Date: 08/01/20 Time: 14:03 Anesthesiologist:: Kristian Whitfield MD Complications:: None Pre-procedure Diagnosis:: CRPS type I left upper extremity Post-procedure Diagnosis:: Same Indications for Procedure:: This patient is a pleasant 44-year-old white male who we are treating for CRPS type I left upper extremity. He did very well from his last previous stellate ganglion block on the left side. This was followed by physical therapy. He has had 70 to 80% relief in his symptomology. He has had significant increase in his functionality. He still has some residual pain symptoms. We will do a repeat left stellate ganglion block under fluoroscopy today. Procedure Details:: Left stellate ganglion block Informed consent was obtained and the risk and benefits of the procedure were explained to the patient. Patient was taken to the procedure room. The neck was prepped using ChloraPrep. A 25-gauge needle was inserted and advanced until it contacted the transverse process of the C7 vertebral body. Needle placement was confirmed with dye. After this we injected 20 mL's lidocaine 1.5% and Depo- Medrol 40 mg into the area of the left stellate ganglion. Patient tolerated the procedure well with no complications. He was immediately sent to physical therapy after the procedure. Plan and Disposition:: We will follow-up with him in 2 weeks. Will reevaluate his symptoms at that time.
[2020-08-01 14:04] VITALS: BP 150/93; PULSE 66; RESP 18; O2SAT 66
== END 2020-08-01 14:05 | disposition home or self-care (01) ==
LOC: SC.PAINP 13:45
PROVIDERS: PCP Nurse Practitioner Family; Visit Provider Anesthesiology
DX: G90.512 Complex regional pain syndrome I of left upper limb (principal); I10 Essential (primary) hypertension; K21.9 Gastro-esophageal reflux disease without esophagitis; J45.909 Unspecified asthma, uncomplicated; Z79.899 Other long term (current) drug therapy
CPT/HCPCS: 64510; J1040; Q9966

== ENCOUNTER 2020-08-12 08:00 | Outpatient (RCR) | payer OTHER, SELFPAY | END 2020-09-04 13:32 | disposition home or self-care (01) | LOC: OT 08:00 | PROVIDERS: Visit Provider Clinical Nurse Specialist Family Health | DX: M25.532 Pain in left wrist; S52.502A Unspecified fracture of the lower end of left radius, initial encounter for closed fracture | CPT/HCPCS: 97014; 97035; 97110; 97140; 97530; G0283 ==

== ENCOUNTER → 2020-08-14 11:37 | Outpatient (POV) | payer OTHER, SELFPAY ==
[2020-08-14 11:38] VITALS: BP 133/74; PULSE 79; RESP 18; O2SAT 98; BMI 34.4
--- NOTE | 2020-08-14 12:02 | HMH.PAINSOAP ---
[facility] Pain Management SOAP Note Subjective:: Patient is a 44-year-old white male who presents today for follow-up after a previous stellate ganglion block on the left side. He has continued with physical therapy and Occupational Therapy. Patient says that he has continued to have some left forearm pain as well as left third and fourth finger pain. He has reached his maximum potential with physical therapy. He has been advised that he no longer needs physical therapy per his physical therapist. Patient says that he does have much more improvement since initially getting physical therapy and the initial stellate ganglion block. He is having some swelling as well as color changes and temperature changes to his left arm and hand. He does rate his pain a 0 out of 10 at this time. His pain worsens, however, when he does any type of activity with his left arm. When he is working, he reports his pain to be at least a 6 or 7 out of 10. Patient has tried a TENS unit along with conservative therapies have injections and anti-inflammatories. He would like to proceed with a another stellate ganglion block. Review of Systems General: No recent weight changes, no fever, no sleep disturbances Respiratory: No cough, no shortness of air, no recurring pulmonary infections Cardiovascular/peripheral vascular: No chest pain, no palpitations, no edema, no shortness of breath Gastrointestinal: No new onset incontinence, normal bowel movements reported Genitourinary: No new onset incontinence Musculoskeletal: Left forearm pain, left hand pain with color changes, edema, and temperature changes Psychiatric: Normal mood/affect Neurological: [Denies weakness in extremities], [denies balance issues] Objective:: Physical exam General: Alert and oriented x3, no acute distress, pleasant and cooperative, [on room air] Lungs: Respirations even and unlabored, symmetrical chest expansion Eyes: PERRL Musculoskeletal: Flexion and extension of left wrist somewhat guarded secondary to pain, deep tendon reflexes normal, strength in upper and lower extremities [5/5], normal gait noted Neurological: Speech clear, manager staffing equal, no gross sensory deficit Assessment:: CRPS type I left upper extremity Plan:: We will stop the patient's physical therapy. We will also plan for repeat stellate ganglion block on the left side. Patient is not on any anticoagulation therapy. We will see him back in the clinic after his block to reassess his symptoms. He has been instructed to contact clinic if he has any concerns for his next appointment. Patient is continuing to have some autonomic changes to his left upper extremity. The patient and I specifically discussed risk factors for COVID19. These risks include, but are not limited to age greater than 60, heart or lung disease, diabetes, immunosuppression, and travel. We also discussed NSAIDs may worsen COVID19 infection or symptoms. Patient should not use NSAIDs to treat COVID19 signs or symptoms. Patient was also informed that any type of corticosteroid of any form (oral or injection) will decrease the patient's immune system response and may increase the likelihood of COVID19 infection and symptoms.Dr. Whitfield has reviewed this note and agrees with this plan of care. This note was dictated using voice recognition software and make contain errors or omissions. [facility] History I have reviewed the patient's past medical history: Yes Medical History: Reports:: Asthma, Gastroesophageal Reflux Disease(GERD), Hyperlipidemia, Hypertension Denies:: Cancer, Diabetes Mellitus Type 1, Diabetes Mellitus Type 2, MRSA, Seizures *Have you ever received a pneumonia vaccine?: Yes *Have you received a flu vaccine this season?: Yes Other Medical History: Reports: Arthritis. Denies: Blood Transfusion Reaction Other Surgeries: Yes: Hernia Repair Amputation: No Fractures: No - *Social History Smoking Status: Never smoker Alcohol Intake: never Alcoh
== END ==
PROVIDERS: PCP Nurse Practitioner Family; Visit Provider Clinical Nurse Specialist Family Health
DX: G90.512 Complex regional pain syndrome I of left upper limb (principal)
CPT/HCPCS: 99212

== ENCOUNTER 2020-08-22 13:31 | Day surgery (SDC) | payer OTHER, SELFPAY ==
[2020-08-22 15:02] VITALS: BP 133/81; PULSE 84; RESP 18; TEMP 36.4; O2SAT 97; BMI 33.4
[2020-08-22 15:35] VITALS: BP 125/85; PULSE 85; RESP 18; O2SAT 98
[2020-08-22 15:37] VITALS: BP 132/77; PULSE 85; RESP 18; O2SAT 98
--- NOTE | 2020-08-22 15:40 | HMH.PMPROC ---
- Procedure Date: 08/22/20 Time: 15:40 Anesthesiologist:: Kristian Whitfield MD Complications:: None Pre-procedure Diagnosis:: Left stellate ganglion block under fluoroscopy Post-procedure Diagnosis:: Same Indications for Procedure:: Patient is a pleasant 44-year-old white male who we have been treating for complex regional pain syndrome type one of the left upper extremity. He has done well with 2 previous ganglion blocks. He got great relief with the first 1 and some relief with the second 1. He is doing home physical therapy exercises. We will do a repeat left stellate ganglion block today to help him with his autonomic symptoms and pain in his left upper extremity. Procedure Details:: Left stellate ganglion block Informed consent was obtained risk and benefits of the procedure were explained to the patient. Left neck was prepped using ChloraPrep. A 25-gauge needle was used and advanced under fluoroscopic guidance to the transverse process of the C7 vertebral body. Needle placement was confirmed with dye. After this we injected 20 mL bupivacaine 0.25% and Depo-Medrol 40 mg into the area of the left stellate ganglion. The patient tolerated the procedure well with no complications. Plan and Disposition:: Patient is to continue home physical therapy exercises. We will follow-up with him in 2 weeks. Will reevaluate symptoms at that time.
[2020-08-22 15:50] VITALS: BP 150/96; PULSE 89; RESP 18; TEMP 36.4; O2SAT 97
== END 2020-08-22 15:58 | disposition home or self-care (01) ==
LOC: SC.PAINP 13:32
PROVIDERS: PCP Nurse Practitioner Family; Visit Provider Anesthesiology
DX: G90.512 Complex regional pain syndrome I of left upper limb (principal); K21.9 Gastro-esophageal reflux disease without esophagitis; I10 Essential (primary) hypertension; Z79.899 Other long term (current) drug therapy
CPT/HCPCS: 64510; 77003; J1040

== ENCOUNTER 2020-08-22 23:24 | Emergency (ER) | payer OTHER, SELFPAY ==
--- NOTE | 2020-08-22 23:23 | ECG_ITS ---
APPROVED REPORT Exam: Resting ECG HR:97 bpm ECG Measurements Heart Rate 97 AXES VA 140 P 28 QRSd 86 QRS -10 QT 334 T 58 QTc 424 Conclusion Normal sinus rhythm Voltage criteria for left ventricular hypertrophy Abnormal ECG Electronically signed by : David Liang, 08/29/2020 11:40:15
[2020-08-22 23:24] VITALS: BP 148/92; PULSE 95; RESP 19; TEMP 36.7; O2SAT 95; BMI 33.4
[2020-08-22 23:48] VITALS: BMI 33.4
--- NOTE | 2020-08-22 23:48 | XR_ITS ---
PROCEDURE: XR CHEST 2V CLINICAL HISTORY: chest pain left-sided chest pain COMPARISON: CR CXR CHEST(2 VIEWS-NOT PORTABLE) from 07/14/2017 CR CXR2V XR chest 2V from 06/26/[address] CHEST WO CON from 12/13/2019 CR XR CHEST 2V from 05/03/2020 FINDINGS: The cardiomediastinal silhouette and pulmonary vascularity are within normal limits. The lungs are clear without infiltrates, suspicious nodules, or pleural effusions. Calcified granuloma right midlung No acute bony abnormalities. IMPRESSION: No change with no acute finding Dictated by: Mihai Good MD 08/23/2020 07:03 Mihai Good MD in [place] 08/23/2020 07:03
[2020-08-22 23:57] LABS: Basophils % 0.3 % (0.1-2.0); Eosinophils % 0.2 % (0.1-12.0); Hematocrit 46.7 % (42.0-52.0); Hemoglobin 15.5 g/dL (14.1-18.0); Lymphocytes # 0.9 K/mm3 (0.7-4.5); Lymphocytes % 11.9 % (10-50); Mean Corpuscular HGB Conc 33.1 g/dL (31.8-35.4); Mean Corpuscular Hemoglobin 30.4 pg (27.0-31.2); Mean Corpuscular Volume 91.9 fl (80-94); Mean Platelet Volume 7.5 fl (7.4-10.4); Monocytes # 0.2 K/mm3 (0.1-1.0); Neutrophils # 6.8 K/mm3 (1.8-7.8); Neutrophils % 85.7 % (37.0-80.0); Platelet Count 302 K/mm3 (142-424); Red Blood Count 5.08 M/mm3 (4.60-6.20); Red Cell Distribution Width 14.9 % (11.5-17.5)
[2020-08-23 00:01] LABS: MANUAL DIFFERENTIAL MANUAL DIFFERENTIAL (MANUAL DIFF)
[2020-08-23 00:04] LABS: Anion Gap 13.1 mEq/L (5-15); Blood Urea Nitrogen 17 mg/dl (9-20); Calcium 9.6 mg/dl (8.4-10.2); Carbon Dioxide 23 mmol/L (22.0-30.0); Chloride 107 mmol/L (98-107); Creatinine Clearance Estimated 123 mL/min (50-200); Estimated Glomerular Filt Rate 73 ml/min (>60); GFR (African American) 89 ML/MIN (>60); Glucose 201 mg/dl (74-100); Potassium 4.1 mmoL/L (3.5-5.1); Sodium 139 mmol/L (136-145)
[2020-08-23 00:13] LABS: Lymphocytes % 3 % (10-50); Monocytes % 1 % (2-9); Neutrophils % 92 % (42-76); Platelet Estimate Normal; RBC Morphology Normal; Total Cells Counted 100
[2020-08-23 00:26] LABS: Troponin I < 0.01 ng/ml (0.00-0.034)
--- NOTE | 2020-08-23 00:32 | HMH.EDCP ---
ED Disposition Clinical Impression: Atypical chest pain, Costalchondritis Disposition: Home, Self-Care Condition on Discharge: Good Instructions: DI for Atypical Chest Pain Referrals: Provider,Referral, MD [Primary Care Provider] - - Critical Care Critical Care Time: No Attestation: On 08/22/20, the high probability of a clinically significant, sudden or life threatening deterioration of the following system(s) required my full and direct attention, intervention and personal management. The time I documented below is in addition to time spent performing reported procedures but includes the following listed in this critical care notation. Medical Decision Making - Medical Records Medical records reviewed: Yes: I reviewed the patient's medical records. - Anibal Inquiry Pt receiving controlled substance: No Vital Signs: 08/22/20 23:24 Temperature 98.1 F Temperature Source Oral Pulse Rate [Apical] 95 H Respiratory Rate 19 Blood Pressure [Right Arm] 148/92 H Blood Pressure Mean [Right Arm] 110 Blood Pressure Source [Right Arm] Automatic Cuff Blood Pressure Position [Right Arm] Supine 02 Sat by Pulse Oximetry 95 Oxygen Delivery Method Room Air - Lab Data Lab results reviewed: Yes: I reviewed the patient's lab results. Lab Results 08/22/20 23:35: WBC 8.0, RBC 5.08, Hgb 15.5, Hct 46.7, MCV 91.9, MCH 30.4, MCHC 33.1, RDW 14.9, Plt Count 302, MPV 7.5, Neut % (Auto) 85.7 H, Lymph % (Auto) 11.9, Daggett % (Auto) 2.0, Eos % (Auto) 0.2, Baso % (Auto) 0.3, Neut # (Auto) 6.8, Lymph # (Auto) 0.9, Daggett # (Auto) 0.2, Eos # (Auto) 0.0, Baso # (Auto) 0.0, Total Counted 100, Neutrophils % (Manual) 92 H, Band Neutrophils % 4.0, Lymphocytes % (Manual) 3 L, Monocytes % (Manual) 1 L, Platelet Estimate Normal, RBC Morphology Normal 08/22/20 23:35: Sodium 139, Potassium 4.1, Chloride 107, Carbon Dioxide 23, Anion Gap 13.1, BUN 17, Creatinine 1.10, Estimated Creat Clear 123, Estimated GFR 73, Est GFR ( Amer) 89, Glucose 201 H, Calcium 9.6, Troponin I < 0.01 Result diagrams: 08/22/20 23:35 08/22/20 23:35 Orders (Tests/Meds): ED MEDICATIONS Generic Name Dose Route Start Last Admin Trade Name Freq PRN Reason Stop Dose Admin Sodium Chloride 1,000 mls @ 999 mls/hr 08/23/20 00:45 Sod Chlor 0.9% 1000ml Bag IV 08/23/20 01:45 .Q1H1M SUSANA Nitroglycerin 0.4 mg 08/22/20 23:53 08/22/20 23:24 Nitroglycerin 0.4mg Sl Tablet SL 09/21/20 23:52 1 tab Q5MINP PRN Administration Chest Pain Discontinued Medications Generic Name Dose Route Start Last Admin Trade Name Freq PRN Reason Stop Dose Admin Aspirin 324 mg 08/22/20 23:52 08/22/20 23:58 Aspirin 81mg Chewable Tablet PO 08/22/20 23:53 324 mg ONCE ONE Administration Ketorolac Tromethamine 30 mg 08/23/20 00:31 Ketorolac 30mg/Ml Vial IV 08/23/20 00:32 ONCE ONE Ketorolac Tromethamine 30 mg 08/23/20 00:31 Ketorolac 30mg/Ml Vial IV 08/23/20 00:32 ONCE ONE ORDERS Category Date Time Status XR chest 2V Stat Exams 08/22/20 23:48 Taken Troponin I Q3H Lab 08/23/20 03:00 Ordered Troponin I Q3H Lab 08/23/20 06:00 Ordered - Radiology Data #1 Image(s): Chest Preliminary Findings: Normal/NAD - ECG Data Tracing #2 I reviewed this ECG and interpreted as documented below: Normal Sinus Rhythm: Yes Medical Decision Narrative: Patient had 2 sets of troponins done 2 hours apart both were negative. Chest Pain HPI - General Chief Complaint: Chest Pain Stated Complaint: chest pain Time Seen by Provider: 08/23/20 00:30 Mode of Arrival: Ambulatory Source of Information: Patient Limitations: No Limitations Description of Symptoms (Recalled from ER Triage Doc. by RN): Pt c/o chest pain that radiates up to neck and head. He describes a sharp pain rating 8 out of 10. No c/o N/V, dizziness, or ERLINDA. Pt is A&O and is not diaphoretic, skin is pink and dry. He states he had a nerve block performed around
--- NOTE | 2020-08-23 01:27 | PC.NURSE ---
blood sent to lab for second troponin
[2020-08-23 02:07] LABS: Troponin I < 0.01 ng/ml (0.00-0.034)
[2020-08-23 02:12] VITALS: BP 122/76; PULSE 72; RESP 16; TEMP 36.8; O2SAT 98
== END 2020-08-23 02:15 | disposition home or self-care (01) ==
PROVIDERS: Emergency Provider Family Medicine
DX: R07.89 Other chest pain (principal); M94.0 Chondrocostal junction syndrome [Tietze]; I10 Essential (primary) hypertension; E78.5 Hyperlipidemia, unspecified; J45.909 Unspecified asthma, uncomplicated; K21.9 Gastro-esophageal reflux disease without esophagitis; Z79.899 Other long term (current) drug therapy; M54.2 Cervicalgia
CPT/HCPCS: 71046; 80048; 84484; 85007; 85025; 93005; 96374; 99282

== ENCOUNTER → 2020-09-18 08:26 | Outpatient (POV) | payer OTHER, SELFPAY ==
[2020-09-18 08:42] VITALS: BP 148/88; PULSE 71; RESP 18; TEMP 36.6; O2SAT 98; BMI 33.4
--- NOTE | 2020-09-18 08:50 | HMH.PAINSOAP ---
[facility] Pain Management SOAP Note Subjective:: Patient is a 45-year-old white male who presents today for follow-up after left stellate ganglion block. 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 He has had numerous stellate ganglion blocks. Patient does report he does get relief, however, at his last visit with the block, he reports that he started to have severe left anterior chest pain following the injection. He says that he was unable to turn his head and developed a severe headache. He did go to the emergency room and was told that he had inflammation around the area where he received a nerve block. He was given a dose of Toradol and reports that his pain immediately dissipated within 3 minutes. He says that he feels he is much more functional with his left upper extremity at this time. He has gone back to work. 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 He says he is using his arm much more since he is gone back to work. He does notice some continued swelling along with color changes, however, he says that it is tolerable at this time. He does not want to proceed with any further injective therapy at this time. He is not interested in a stimulator at this time. He says if the pain worsens in the future he would be open to the stimulator, however. He does rate his pain a 0 out of 10. Review of Systems General: No recent weight changes, no fever, no sleep disturbances Respiratory: No cough, no shortness of air, no recurring pulmonary infections Cardiovascular/peripheral vascular: No chest pain, no palpitations, no edema, no shortness of breath Gastrointestinal: No new onset incontinence, normal bowel movements reported Genitourinary: No new onset incontinence Musculoskeletal: Intermittent left arm pain Psychiatric: Normal mood/affect Neurological: [Denies weakness in extremities], [denies balance issues] Objective:: Physical exam General: Alert and oriented x3, no acute distress, pleasant and cooperative, [on room air] Lungs: Respirations even and unlabored, symmetrical chest expansion Eyes: PERRL Musculoskeletal: Flexion and extension of left upper extremity somewhat guarded secondary to pain, deep tendon reflexes normal, strength in upper and lower extremities [5/5], normal gait noted Neurological: Speech clear, validation manager equal, no gross sensory deficit Assessment:: Left arm pain, CRPS type I left upper extremity Plan:: Patient would like to follow-up with us as needed. He says if his pain returns he will contact the clinic. He has been instructed to contact clinic if he has any concerns before his next appointment. The patient and I specifically discussed risk factors for COVID19. These risks include, but are not limited to age greater than 60, heart or lung disease, diabetes, immunosuppression, and travel. We also discussed NSAIDs may worsen COVID19 infection or symptoms. Patient should not use NSAIDs to treat COVID19 signs or symptoms. Patient was also informed that any type of corticosteroid of any form (oral or injection) will decrease the patient's immune system response and may increase the likelihood of COVID19 infection and symptoms[address] Dr. Whitfield has reviewed this note and agrees with this plan of care. This note was dictated using voice recognition software and make contain errors or omissions. [facility] History I have reviewed the patient's past medical history: Yes Medical History: Reports:: Asthma, Gastroesophageal Reflux Disease(GERD), Hyperlipidemia, Hypertension Denies:: Cancer, Diabetes Mellitus Type 1, Diabetes Mellitus Type 2, MRSA, Seizures *Have you ever received a pneumonia vaccine?: Yes *Have you received a flu vaccine this season?: Yes Other Medical History: Reports: Arthritis. Denies: Blood Transfusion Reaction Other Surgeries: Yes: Hernia Repair Amputation: No Fractures: No - *Social History Smoking Status: Never smoker Alcohol Intake: never Alcohol Intake Frequency:: other Subs
[2020-09-18 11:31] LABS: Chloride 106 mmol/L (98-107)
[2020-09-18 11:32] LABS: Potassium 4.4 mmoL/L (3.5-5.1); Sodium 140 mmol/L (136-145)
[2020-09-18 11:34] LABS: Alanine Aminotransferase 34 U/L (12-78); Alkaline Phosphatase 89 U/L (38-126); Anion Gap 12.4 mEq/L (5-15); Aspartate Amino Transferase 28 U/L (17-59); Bilirubin,Total 0.6 mg/dl (0.2-1.3); Blood Urea Nitrogen 18 mg/dl (9-20); Carbon Dioxide 26 mmol/L (22.0-30.0); Creatinine Clearance Estimated 122 mL/min (50-200); Estimated Glomerular Filt Rate 73 ml/min (>60); GFR (African American) 88 ML/MIN (>60)
[2020-09-18 11:35] LABS: Albumin Level 4.4 g/dl (3.5-5.0); Albumin/Globulin Ratio 1.3 (1.1-1.8); Calcium 9.5 mg/dl (8.4-10.2); Chol/HDL Ratio 3.8 (1-3.5); Cholesterol 192 mg/dl (140-200); Globulin 3.3 g/dL (1.3-3.2); Glucose 91 mg/dl (74-100); HDL Cholesterol 51 mg/dl (40-60); Total Protein,Serum 7.7 g/dl (6.3-8.2); Triglycerides 71 mg/dl (30-150); VLDL Cholesterol 14 mg/dL (0-40)
== END ==
PROVIDERS: PCP Nurse Practitioner Family; Visit Provider Clinical Nurse Specialist Family Health
DX: G90.512 Complex regional pain syndrome I of left upper limb (principal); I10 Essential (primary) hypertension; E78.2 Mixed hyperlipidemia; R25.2 Cramp and spasm
CPT/HCPCS: 36415; 80053; 80061; 83735; 99212

== ENCOUNTER → 2021-05-21 15:11 | Outpatient (CLI) | payer OTHER, SELFPAY ==
--- NOTE | 2021-05-21 15:11 | US_ITS ---
PROCEDURE: US THYROID CLINICAL INDICATION: thyroid enlargement Via COMPARISON: No exams were available for comparison FINDINGS: Right lobe: 4.6 x 2.2 x 1.5 centimeters Left lobe: 4.2 x 1.7 x 1.4 centimeters Isthmus: 0.3 centimeters. Additional findings: Homogeneous echotexture of the thyroid gland is noted bilaterally. No evidence of nodules. Vascularity is within normal limits. IMPRESSION: Mild thyromegaly. No evidence of nodules. Dictated by: Dana Díaz 05/21/2021 16:33 Dana Díaz in [facility] 05/21/2021 16:33
== END ==
PROVIDERS: PCP Nurse Practitioner Family; Visit Provider Specialist
DX: E04.9 Nontoxic goiter, unspecified (principal)
CPT/HCPCS: 76536

== ENCOUNTER → 2021-05-28 07:37 | Outpatient (CLI) | payer OTHER, SELFPAY ==
[2021-05-28 16:05] LABS: Free T4 (Free Thyroxine) 1.18 ng/dl (0.78-2.19)
[2021-05-29 09:20] LABS: Triiodothyronine (T3) Total 134 ng/dL (71-180)
== END ==
PROVIDERS: Visit Provider Specialist
DX: E04.9 Nontoxic goiter, unspecified (principal)
CPT/HCPCS: 36415; 84439; 84443; 84480

== ENCOUNTER → 2021-08-31 07:36 | Outpatient (CLI) | payer OTHER, SELFPAY ==
[2021-08-31 14:12] LABS: Chloride 105 mmol/L (98-107); Potassium 4.2 mmoL/L (3.5-5.1); Sodium 139 mmol/L (136-145)
[2021-08-31 14:13] LABS: Basophils # 0.1 K/mm3 (0-0.2); Basophils % 1.5 % (0.1-2.0); Eosinophils # 0.2 K/mm3 (0.0-0.4); Hematocrit 45.9 % (42.0-52.0); Hemoglobin 14.6 g/dL (14.1-18.0); Lymphocytes # 2.3 K/mm3 (0.7-4.5); Lymphocytes % 36.1 % (10-50); Mean Corpuscular HGB Conc 31.8 g/dL (31.8-35.4); Mean Corpuscular Hemoglobin 30.3 pg (27.0-31.2); Mean Corpuscular Volume 95.3 fl (80-94); Mean Platelet Volume 8.9 fl (7.4-10.4); Monocytes # 0.3 K/mm3 (0.1-1.0); Monocytes % 5.4 % (1.7-9.3); Neutrophils # 3.4 K/mm3 (1.8-7.8); Platelet Count 316 K/mm3 (142-424); Red Blood Count 4.81 M/mm3 (4.60-6.20); Red Cell Distribution Width 14.7 % (11.5-17.5); White Blood Count 6.4 K/mm3 (4.8-10.8)
[2021-08-31 14:15] LABS: Alanine Aminotransferase 26 U/L (12-78); Albumin Level 3.9 g/dl (3.5-5.0); Albumin/Globulin Ratio 1.2 (1.1-1.8); Alkaline Phosphatase 102 U/L (38-126); Anion Gap 11.2 mEq/L (5-15); Aspartate Amino Transferase 30 U/L (17-59); Bilirubin,Total 0.5 mg/dl (0.2-1.3); Blood Urea Nitrogen 15 mg/dl (9-20); Calcium 9.1 mg/dl (8.4-10.2); Carbon Dioxide 27 mmol/L (22.0-30.0); Cholesterol 137 mg/dl (140-200); Estimated Glomerular Filt Rate 81 ml/min (>60); GFR (African American) 98 ML/MIN (>60); Globulin 3.2 g/dL (1.3-3.2); Glucose 96 mg/dl (74-100); Total Protein,Serum 7.1 g/dl (6.3-8.2); Triglycerides 99 mg/dl (30-150); VLDL Cholesterol 20 mg/dL (0-40)
[2021-08-31 14:16] LABS: Chol/HDL Ratio 3.4 (1-3.5); HDL Cholesterol 40 mg/dl (40-60)
[2021-08-31 14:36] LABS: 25-OH Vitamin D, Total 34.5 ng/mL (30-100)
[2021-08-31 14:46] LABS: Thyroid Stimulating Hormone 1.32 uIU/mL (0.465-4.68)
[2021-08-31 15:48] LABS: Vitamin B12 221 pg/mL (239-931)
== END ==
PROVIDERS: Visit Provider Nurse Practitioner Family
DX: Z00.00 Encounter for general adult medical examination without abnormal findings (principal); I10 Essential (primary) hypertension; R53.83 Other fatigue; E66.3 Overweight; Z68.33 Body mass index [BMI] 33.0-33.9, adult
CPT/HCPCS: 36415; 80053; 80061; 82306; 82607; 84443; 85025

== ENCOUNTER → 2021-09-04 06:38 | Outpatient (CLI) | payer OTHER, SELFPAY ==
--- NOTE | 2021-09-04 06:57 | CT_ITS ---
PROCEDURE: CT CHEST WO CON CLINICAL INDICATION: ABNORMAL CT CHEST, DYSPNEA COMPARISON: CT CT CHEST WO CON from 12/13/2019 TECHNIQUE: Axial images obtained with sagittal and coronal reformats. All CT scans at the facility use one or more dose reduction, viz: automated exposure control, ma/kV adjustment per patient size (including targeted exams where dose is matched to indication, i.e. head), or iterative reconstruction technique. FINDINGS: HEART AND MEDIASTINAL STRUCTURES: Mildly prominent precarinal lymph node is once again noted at 1.9 cm not significantly changed. No new mediastinal or hilar adenopathy mass. There is a small hiatal hernia. LUNGS AND PLEURAL SPACES: Minimal scarring in the right upper lobe unchanged. Minimal scarring right middle lobe and lingula unchanged. Left lower lobe infiltrate has resolved. No suspicious lung lesions identified BONY STRUCTURES: No acute bony abnormalities apparent. UPPER ABDOMEN: Unremarkable. ADDITIONAL FINDINGS: Scattered small axillary nodes and subcutaneous metallic density in the left lower hemithorax anteriorly unchanged IMPRESSION: Stable CT appearance of the chest. No acute finding. Dictated by: Mihai Good MD 09/05/2021 09:06 Mihai Good MD in [facility] 09/05/2021 09:06
== END ==
PROVIDERS: PCP Nurse Practitioner Family; Visit Provider Nurse Practitioner Family
DX: R93.89 Abnormal findings on diagnostic imaging of other specified body structures (principal)
CPT/HCPCS: 71250

== ENCOUNTER → 2021-09-29 16:46 | Outpatient (CLI) | payer OTHER, SELFPAY ==
[2021-09-29 18:30] LABS: Basophils # 0.1 K/mm3 (0-0.2); Basophils % 1.6 % (0.1-2.0); Eosinophils # 0.2 K/mm3 (0.0-0.4); Hematocrit 46.8 % (42.0-52.0); Hemoglobin 15.7 g/dL (14.1-18.0); Lymphocytes # 2.8 K/mm3 (0.7-4.5); Lymphocytes % 39.6 % (10-50); Mean Corpuscular HGB Conc 33.6 g/dL (31.8-35.4); Mean Corpuscular Hemoglobin 30.7 pg (27.0-31.2); Mean Corpuscular Volume 91.4 fl (80-94); Mean Platelet Volume 9.1 fl (7.4-10.4); Monocytes # 0.4 K/mm3 (0.1-1.0); Neutrophils # 3.7 K/mm3 (1.8-7.8); Neutrophils % 50.8 % (37.0-80.0); Platelet Count 367 K/mm3 (142-424); Red Blood Count 5.12 M/mm3 (4.60-6.20); Red Cell Distribution Width 14.3 % (11.5-17.5); White Blood Count 7.2 K/mm3 (4.8-10.8)
[2021-09-29 20:39] LABS: Erythrocyte Sedimentation Rate 10 mm/hr (0-15)
[2021-09-29 22:24] LABS: Chloride 104 mmol/L (98-107); Potassium 4.3 mmoL/L (3.5-5.1); Sodium 141 mmol/L (136-145)
[2021-09-29 22:26] LABS: Alanine Aminotransferase 24 U/L (12-78); Aspartate Amino Transferase 31 U/L (17-59); Blood Urea Nitrogen 15 mg/dl (9-20); Estimated Glomerular Filt Rate 66 ml/min (>60); GFR (African American) 80 ML/MIN (>60)
[2021-09-29 22:27] LABS: Albumin Level 4.7 g/dl (3.5-5.0); Albumin/Globulin Ratio 1.5 (1.1-1.8); Alkaline Phosphatase 125 U/L (38-126); Anion Gap 15.3 mEq/L (5-15); Bilirubin,Total 0.3 mg/dl (0.2-1.3); Calcium 9.8 mg/dl (8.4-10.2); Carbon Dioxide 26 mmol/L (22.0-30.0); Chol/HDL Ratio 5.9 (1-3.5); Cholesterol 272 mg/dl (140-200); Globulin 3.2 g/dL (1.3-3.2); Glucose 92 mg/dl (74-100); HDL Cholesterol 46 mg/dl (40-60); Iron 100 ug/dL (49-181); Total Protein,Serum 7.9 g/dl (6.3-8.2); Triglycerides 207 mg/dl (30-150); VLDL Cholesterol 41 mg/dL (0-40)
[2021-09-29 22:34] LABS: C-Reactive Protein 1.6 mg/L (0-4)
[2021-09-29 22:37] LABS: Total Iron Binding Capacity 352 ug/dL (261-462)
[2021-09-29 22:38] LABS: Direct LDL Cholesterol 194.47 mg/dL (100-129)
[2021-09-29 22:59] LABS: Uric Acid 5.4 mg/dl (3.5-8.5)
[2021-09-29 23:03] LABS: Ferritin 189 ng/ml (17.9-464)
[2021-09-30 00:03] LABS: Vitamin B12 977 pg/mL (239-931)
[2021-10-01 08:29] LABS: RA Latex Turbid. <10.0 IU/mL (<14.0)
[2021-10-01 13:31] LABS: Anti-Centromere B Antibodies <0.2 AI (0.0-0.9); Anti-DNA (DS) Ab Qn 1 IU/mL (0-9); Anti-Jo-1 <0.2 AI (0.0-0.9); Anti-Smith Antibody <0.2 AI (0.0-0.9); Antichromatin Antibodies <0.2 AI (0.0-0.9); Antiscleroderma-70 Antibodies <0.2 AI (0.0-0.9); RNP Antibodies 0.3 AI (0.0-0.9); Sjogren's Anti-SS-A <0.2 AI (0.0-0.9); Sjogren's Anti-SS-B <0.2 AI (0.0-0.9)
[2021-10-02 00:07] LABS: Anti-Cyclic Citrullinated Pept 7 units (0-19)
[2021-10-03 18:09] LABS: Testosterone, Total, LC/MS 513.7 ng/dL (264.0-916.0); Testosterone,Free 5.8 pg/mL (6.8-21.5)
[2021-10-12 18:09] LABS: 1,25 Dihydroxy Vitamin D 76 pg/mL (.); 1,25-Dihydroxy, Vitamin D-2 <10 pg/mL (.); 1,25-Dihydroxy, Vitamin D-3 76 pg/mL (.)
== END ==
PROVIDERS: PCP Physician Assistant; Visit Provider Physician Assistant
DX: M25.50 Pain in unspecified joint (principal); R53.83 Other fatigue; E78.5 Hyperlipidemia, unspecified
CPT/HCPCS: 36415; 80053; 80061; 82607; 82652; 82728; 83540; 83550; 84402; 84403; 84550; 85025; 85651; 86140; 86200; 86225; 86235; 86431

== ENCOUNTER → 2021-10-12 13:28 | Outpatient (CLI) | payer OTHER, SELFPAY ==
--- NOTE | 2021-10-12 13:29 | CA_ITS ---
APPROVED REPORT EXAM: Comprehensive 2D, Doppler, and color-flow Echocardiogram Rn Outpatient Surgery: Mone Amin RT(R) Ht: 5 ft 8 in Wt: 218lbs BSA: 2.12 BP: 111/82 mmHg Indications: SOB, Murmur, HTN, hyperlipidemia, GERD, asthma 2D Dimensions LVOT 2.04 cm (M/F) 1.5-2.5 LA Volume 46.20 mL LA Volume Index 21.79 mL/m2 (M/F) 16-34 M-Mode Dimensions RVDd 1.68 cm (0.9-2.6) LA Diam 4.00 cm (1.9-4.0) LVDd 4.20 cm (3.5-5.7) Ao Diam 2.66 cm (2.0-3.7) LVDs 3.24 cm (3.5-5.7) IVSd 0.84 cm (0.6-1.1) PWd 1.00 cm (0.6-1.1) EF (Teich) 46.30% FS 22.90% EDV (Teich) 78.60 mL ESV (Teich) 42.20 mL LV Diastology E Decel Time 227.00 (160-240 msec) E/A Ratio 1.2 MED E' 10.30 (< 7 cm/sec) E'/MED E' Ratio 7.25 (>14) LAT E' 13.30 (<10 cm/sec) E/LAT E' Ratio 5.62 (>14) Mitral Valve MV E Max Morris. 75.00 (40-130 cm/s) MV A Velocity 63.00 (40-130 cm/s) E/A Ratio 1.19 MV Decel. Time 227.00 (160-240 ms) MV PHT 66.00 ms Left Ventricle Left atrium is normal size, left ventricle is normal size, there is no concentric left ventricular hypertrophy, visually estimated ejection fraction 55% with no regional wall motion abnormality, diastolic parameters are within normal range. Right Ventricle Right atrium and right ventricle are normal size and contractility. Aortic Valve Aortic valve is minimally thickened and fibrosed, there is no aortic stenosis or aortic insufficiency. Mitral Valve Mitral valve is grossly normal, there is trace mitral regurgitation. Tricuspid Valve Tricuspid valve grossly normal, there is trace tricuspid regurgitation, tricuspid regurgitation jet velocity is inadequate for calculation of the right ventricular systolic pressure. Pulmonic Valve Pulmonic valve is poorly visualized. Great Vessels Aortic root is normal size. Inferior vena cava normal size with normal inspiratory collapse. Pericardium No significant pericardial effusion noted. Conclusion 1. Normal left ventricular size, preserved left ventricular systolic function, visually estimated ejection fraction 55% with no regional wall motion abnormality, diastolic parameters are within normal range. 2. Trace mitral and tricuspid regurgitation. 3. No significant pericardial effusion. 4. Inferior vena cava is normal size with normal inspiratory collapse. Electronically signed by : Jacoby Chatterjee MD 10/12/2021 20:03:09
== END ==
PROVIDERS: PCP Physician Assistant; Visit Provider Physician Assistant
DX: R06.00 Dyspnea, unspecified (principal); R01.1 Cardiac murmur, unspecified
CPT/HCPCS: 93306

== ENCOUNTER → 2021-10-22 07:39 | Outpatient (CLI) | payer OTHER, SELFPAY ==
[2021-10-22 07:54] LABS: Basophils # 0.1 K/mm3 (0-0.2); Basophils % 1.2 % (0.1-2.0); Eosinophils # 0.2 K/mm3 (0.0-0.4); Eosinophils % 3.1 % (0.1-12.0); Hematocrit 44.6 % (42.0-52.0); Hemoglobin 14.5 g/dL (14.1-18.0); Lymphocytes # 2.2 K/mm3 (0.7-4.5); Lymphocytes % 31.3 % (10-50); Mean Corpuscular HGB Conc 32.4 g/dL (31.8-35.4); Mean Corpuscular Hemoglobin 30.7 pg (27.0-31.2); Mean Corpuscular Volume 94.7 fl (80-94); Mean Platelet Volume 7.6 fl (7.4-10.4); Monocytes # 0.4 K/mm3 (0.1-1.0); Monocytes % 5.1 % (1.7-9.3); Neutrophils # 4.1 K/mm3 (1.8-7.8); Neutrophils % 59.3 % (37.0-80.0); Platelet Count 314 K/mm3 (142-424); Red Blood Count 4.71 M/mm3 (4.60-6.20); Red Cell Distribution Width 14.3 % (11.5-17.5); White Blood Count 6.9 K/mm3 (4.8-10.8)
[2021-10-29 03:37] LABS: D001-IgE D pteronyssinus 0.23 kU/L (Class 0/I); D002-IgE D farinae 0.18 kU/L (Class 0/I); E001-IgE Cat Dander <0.10 kU/L (Class 0); E005-IgE Dog Dander <0.10 kU/L (Class 0); E072-IgE Mouse Urine <0.10 kU/L (Class 0); G002-IgE Bermuda Grass <0.10 kU/L (Class 0); G006-IgE Timothy Grass <0.10 kU/L (Class 0); I006-IgE Cockroach, German <0.10 kU/L (Class 0); Immunoglobulin E, Total 140 IU/mL (6-495); M001-IgE Penicillium chrysogen <0.10 kU/L (Class 0); M002-IgE Cladosporium herbarum <0.10 kU/L (Class 0); M003-IgE Aspergillus fumigatus <0.10 kU/L (Class 0); M006-IgE Alternaria alternata <0.10 kU/L (Class 0); T001-IgE Maple/Box Elder <0.10 kU/L (Class 0); T003-IgE Common Silver Birch <0.10 kU/L (Class 0); T006-IgE Cedar, Mountain <0.10 kU/L (Class 0); T007-IgE Oak, White <0.10 kU/L (Class 0); T008-IgE Elm, American <0.10 kU/L (Class 0); T010-IgE Walnut <0.10 kU/L (Class 0); T011-IgE Maple Leaf Sycamore <0.10 kU/L (Class 0); T014-IgE Cottonwood <0.10 kU/L (Class 0); T015-IgE Ash, White <0.10 kU/L (Class 0); T022-IgE Pecan, Hickory <0.10 kU/L (Class 0); T070-IgE White Mulberry <0.10 kU/L (Class 0); W001-IgE Ragweed, Short <0.10 kU/L (Class 0); W011-IgE Thistle, Russian <0.10 kU/L (Class 0); W014-IgE Pigweed, Common <0.10 kU/L (Class 0); W018-IgE Sheep Sorrel <0.10 kU/L (Class 0)
== END ==
PROVIDERS: Visit Provider Internal Medicine Pulmonary Disease
DX: J45.909 Unspecified asthma, uncomplicated (principal)
CPT/HCPCS: 36415; 82785; 85025; 86003

== ENCOUNTER → 2021-10-22 07:48 | Outpatient (CLI) | payer OTHER, SELFPAY | PROVIDERS: PCP Physician Assistant; Visit Provider Internal Medicine Pulmonary Disease | DX: R06.00 Dyspnea, unspecified (principal) | CPT/HCPCS: 94060; 94618; 94726; 94729 ==

== ENCOUNTER 2022-01-01 12:05 | Emergency (ER) | payer OTHER, SELFPAY ==
[2022-01-01] VITALS (11 sets, daily range): BP systolic 122–148; BP diastolic 65–91; PULSE 50–97; RESP 14–24; TEMP 36.8–37.2; O2SAT 95–98; BMI 33.4; BMI 31.0
--- NOTE | 2022-01-01 12:43 | PC.NURSE ---
PATIENT SENT TO ER PER Layne LEBLANC APRN FOR FURTHER EVALUATION. REPORT GIVEN TO Sergio JONAS RN BY Layne LEBLANC APRN
--- NOTE | 2022-01-01 12:46 | ECG_ITS ---
APPROVED REPORT Exam: Resting ECG HR:93 bpm ECG Measurements Heart Rate 93 AXES DC 146 P 40 QRSd 110 QRS -2 QT 369 T 20 QTc 419 Conclusion SINUS RHYTHM WITH FREQUENT VENTRICULAR PREMATURE COMPLEXES VOLTAGE CRITERIA FOR LVH [MEETS CRITERIA IN ONE OF: R(aVL), S(V1), R(V5), R(V5/V6)+S(V1)] NONSPECIFIC T-WAVE ABNORMALITY ABNORMAL ECG UNCONFIRMED REPORT Electronically signed by : Goyo Elliott MD 01/02/2022 09:24:43
--- NOTE | 2022-01-01 12:52 | PC.NURSE ---
ED MD at bedside
--- NOTE | 2022-01-01 12:58 | HMH.EDUTC ---
[facility] [place] Disposition Condition on Discharge: Good <Ronny Vo - Last Filed: 01/01/22 15:31> Time of Disposition: 13:05 <Iveth Ngo - Last Filed: 01/01/22 17:19> Clinical Impression: Shortness of breath Disposition: Home, Self-Care Instructions: DI for Shortness of Breath Referrals: July Albarran PA [Primary Care Provider] - Medical Decision Making - Lab Data Result diagrams: 01/01/22 13:05 01/01/22 13:10 - CT Data CT Scan: Chest Time Received: 15:[address] Reviewed: Yes: I have reviewed the patient's CT results, I have viewed the radiologist's interpretation - ECG Data Tracing #1 I reviewed this ECG and interpreted as documented below: ECG initial impression date: 01/01/22 ECG initial impression time: 12:46 - Reevaluation(s) Time: 15:32 <Ronny Vo - Last Filed: 01/01/22 15:31> - Medical Records Medical records reviewed: Yes: I reviewed the patient's medical records. - Anibal Inquiry Pt receiving controlled substance: No Anibal was queried for this patient: No - Lab Data Result diagrams: 01/01/22 13:05 01/01/22 13:10 <Iveth Ngo - Last Filed: 01/01/22 17:19> Vital Signs: 01/01/22 12:25 01/01/22 12:46 01/01/22 13:01 Temperature 98.9 F 98.2 F Temperature Source Oral Oral Pulse Rate 83 Pulse Rate [Right Brachial] 50 L 95 H Respiratory Rate 19 14 18 Blood Pressure 145/89 H Blood Pressure [Right Arm] 148/67 H 142/91 H Blood Pressure Mean 107 Blood Pressure Mean [Right Arm] 94 108 Blood Pressure Source [Right Arm] Automatic Cuff Automatic Cuff Blood Pressure Position [Right Arm] Sitting Sitting 02 Sat by Pulse Oximetry 97 96 97 Oxygen Delivery Method Room Air Room Air 01/01/22 13:30 01/01/22 14:23 01/01/22 14:31 Temperature Temperature Source Pulse Rate 77 63 87 Pulse Rate [Right Brachial] Respiratory Rate 16 24 22 Blood Pressure 131/81 135/65 131/77 Blood Pressure [Right Arm] Blood Pressure Mean 102 82 95 Blood Pressure Mean [Right Arm] Blood Pressure Source [Right Arm] Blood Pressure Position [Right Arm] 02 Sat by Pulse Oximetry 98 97 95 Oxygen Delivery Method 01/01/22 15:00 01/01/22 15:45 01/01/22 15:54 Temperature Temperature Source Pulse Rate 83 88 60 Pulse Rate [Right Brachial] Respiratory Rate 16 22 23 Blood Pressure 132/81 138/81 122/67 Blood Pressure [Right Arm] Blood Pressure Mean 91 91 Blood Pressure Mean [Right Arm] Blood Pressure Source [Right Arm] Blood Pressure Position [Right Arm] 02 Sat by Pulse Oximetry 96 95 95 Oxygen Delivery Method 01/01/22 16:00 01/01/22 16:21 Temperature 98.2 F Temperature Source Pulse Rate 90 97 H Pulse Rate [Right Brachial] Respiratory Rate 16 24 Blood Pressure 123/71 123/71 Blood Pressure [Right Arm] Blood Pressure Mean 88 Blood Pressure Mean [Right Arm] Blood Pressure Source [Right Arm] Blood Pressure Position [Right Arm] 02 Sat by Pulse Oximetry 96 Oxygen Delivery Method - Lab Data Lab Results 01/01/22 13:05: WBC 8.1, RBC 4.82, Hgb 14.5, Hct 45.4, MCV 94.1 H, MCH 30.0, MCHC 31.9, RDW 13.8, Plt Count 437 H, MPV 7.9, Neut % (Auto) 70.4, Lymph % (Auto) 19.4, [place] % (Auto) 6.0, Eos % (Auto) 2.7, Baso % (Auto) 1.6, Neut # (Auto) 5.7, Lymph # (Auto) 1.6, [place] # (Auto) 0.5, Eos # (Auto) 0.2, Baso # (Auto) 0.1 01/01/22 13:10: Sodium 140, Potassium 3.9, Chloride 103, Carbon Dioxide 26, Anion Gap 14.9, BUN 11, Creatinine 1.20, Estimated Creat Clear 103, Estimated GFR 66, Est GFR ( Amer) 80, Glucose 112 H, Calcium 8.3 L, Total Bilirubin 0.7, AST 29, ALT 27, Alkaline Phosphatase 85, Troponin I < 0.01, NT-Pro-B Natriuret Pep 32.4, Total Protein 8.0, Albumin 4.4, Globulin 3.6 H, Albumin/Globulin Ratio 1.2 01/01/22 13:10: SARS-CoV-2 (PCR) Not detected, Influenza A Untype (PCR) Not detected, Influenza Type B (PCR) Not detected Orders (Tests/Meds): ED MEDICATIONS Discontinued Medications Generic Name
[2022-01-01 13:16] LABS: Coronavirus 19, PCR Not Detected (NotDetected); Influenza A, PCR Not Detected (NotDetected); Influenza B, PCR Not Detected (NotDetected)
[2022-01-01 13:20] LABS: Basophils # 0.1 K/mm3 (0-0.2); Basophils % 1.6 % (0.1-2.0); Eosinophils # 0.2 K/mm3 (0.0-0.4); Eosinophils % 2.7 % (0.1-12.0); Hematocrit 45.4 % (42.0-52.0); Hemoglobin 14.5 g/dL (14.1-18.0); Lymphocytes # 1.6 K/mm3 (0.7-4.5); Lymphocytes % 19.4 % (10-50); Mean Corpuscular HGB Conc 31.9 g/dL (31.8-35.4); Mean Corpuscular Volume 94.1 fl (80-94); Mean Platelet Volume 7.9 fl (7.4-10.4); Monocytes # 0.5 K/mm3 (0.1-1.0); Neutrophils # 5.7 K/mm3 (1.8-7.8); Neutrophils % 70.4 % (37.0-80.0); Platelet Count 437 K/mm3 (142-424); Red Blood Count 4.82 M/mm3 (4.60-6.20); Red Cell Distribution Width 13.8 % (11.5-17.5); White Blood Count 8.1 K/mm3 (4.8-10.8)
[2022-01-01 13:29] LABS: Alanine Aminotransferase 27 U/L (12-78); Aspartate Amino Transferase 29 U/L (17-59); Blood Urea Nitrogen 11 mg/dl (9-20); Calcium 8.3 mg/dl (8.4-10.2); Carbon Dioxide 26 mmol/L (22.0-30.0); Creatinine Clearance Estimated 103 mL/min (50-200); Estimated Glomerular Filt Rate 66 ml/min (>60); GFR (African American) 80 ML/MIN (>60); Glucose 112 mg/dl (74-100)
--- NOTE | 2022-01-01 13:32 | CT_ITS ---
FINAL REPORT TECHNIQUE: Then section axial CT images of the chest were obtained with contrast. Three-D reformatted images were also obtained.This study was performed with techniques to keep radiation doses as low as reasonably achievable (ALARA). Individualized dose reduction techniques using automated exposure control or adjustment of mA and/or kV according to the patient''s size were employed. CLINICAL HISTORY: SOA.cough, hiatal hernia surgery x2wks ago. COMPARISON: September 04, 2021 FINDINGS: Motion on many of the images decreases exam sensitivity. There is no evidence of pulmonary embolism. There is no evidence of thoracic aortic aneurysm or dissection. There is no evidence of mediastinal or hilar mass or adenopathy. There is no evidence of pulmonary mass or suspicious nodule. There is bilateral lower lobe atelectasis, left greater than right. There is atelectasis in the lingula. There is a small left pleural effusion. Limited images of the upper abdomen demonstrate a gastrostomy 2 to be present. There is a foreign body in the region of the pylorus, postoperative change versus ingested foreign body. IMPRESSION: 1. No evidence of pulmonary embolism. 2. Bilateral atelectasis with a small left pleural effusion. Reviewed, Interpreted and Dictated by Matt Babcock III, MD Transcribed by Devon Mirza Authenticated by Matt Babcock III, MD on 01/01/2022 03:10:37 PM [facility]
[2022-01-01 13:38] LABS: NT Pro Brain Natriuretic Pep. 32.4 pg/mL (0-125)
[2022-01-01 13:43] LABS: Troponin I < 0.01 ng/ml (0.00-0.034)
[2022-01-01 13:50] LABS: Albumin Level 4.4 g/dl (3.5-5.0); Albumin/Globulin Ratio 1.2 (1.1-1.8); Alkaline Phosphatase 85 U/L (38-126); Anion Gap 14.9 mEq/L (5-15); Bilirubin,Total 0.7 mg/dl (0.2-1.3); Chloride 103 mmol/L (98-107); Globulin 3.6 g/dL (1.3-3.2); Potassium 3.9 mmoL/L (3.5-5.1); Sodium 140 mmol/L (136-145)
--- NOTE | 2022-01-01 13:55 | PC.NURSE ---
patient to CT with rough rib grader
--- NOTE | 2022-01-01 15:28 | PC.NURSE ---
ED MD at bedside for update on POC
== END 2022-01-01 16:22 | disposition home or self-care (01) ==
LOC: UTC 12:33 → ER 12:44
PROVIDERS: Emergency Provider Emergency Medicine; PCP Physician Assistant
DX: R06.02 Shortness of breath (principal); J98.11 Atelectasis; R00.1 Bradycardia, unspecified; Z20.822 Contact with and (suspected) exposure to COVID-19; I10 Essential (primary) hypertension; E78.5 Hyperlipidemia, unspecified; K21.9 Gastro-esophageal reflux disease without esophagitis; G47.33 Obstructive sleep apnea (adult) (pediatric); E53.8 Deficiency of other specified B group vitamins; J90 Pleural effusion, not elsewhere classified; J45.909 Unspecified asthma, uncomplicated; Z75.1 Person awaiting admission to adequate facility elsewhere; Z79.899 Other long term (current) drug therapy
CPT/HCPCS: 71275; 80053; 83880; 84484; 85025; 93005; C9803; Q9967; U0003; U0005

== ENCOUNTER 2022-01-19 11:08 | Outpatient (RCR) | payer OTHER, SELFPAY | END 2022-01-19 12:00 | disposition home or self-care (01) | LOC: OT 11:08 | PROVIDERS: Visit Provider Physician Assistant | DX: G56.23 Lesion of ulnar nerve, bilateral upper limbs | CPT/HCPCS: 97763 ==

== ENCOUNTER → 2022-04-06 07:24 | Outpatient (CLI) | payer OTHER, SELFPAY ==
[2022-04-06 15:14] LABS: Basophils # 0.1 K/mm3 (0-0.2); Basophils % 1.7 % (0.1-2.0); Eosinophils # 0.2 K/mm3 (0.0-0.4); Eosinophils % 2.4 % (0.1-12.0); Hematocrit 48.2 % (42.0-52.0); Hemoglobin 15.5 g/dL (14.1-18.0); Lymphocytes # 2.3 K/mm3 (0.7-4.5); Lymphocytes % 35.4 % (10-50); Mean Corpuscular HGB Conc 32.2 g/dL (31.8-35.4); Mean Corpuscular Hemoglobin 29.7 pg (27.0-31.2); Mean Corpuscular Volume 92.2 fl (80-94); Mean Platelet Volume 9.8 fl (7.4-10.4); Monocytes # 0.3 K/mm3 (0.1-1.0); Monocytes % 5.1 % (1.7-9.3); Neutrophils # 3.6 K/mm3 (1.8-7.8); Neutrophils % 55.4 % (37.0-80.0); Platelet Count 278 K/mm3 (142-424); Red Blood Count 5.23 M/mm3 (4.60-6.20); Red Cell Distribution Width 15.2 % (11.5-17.5); White Blood Count 6.5 K/mm3 (4.8-10.8)
[2022-04-06 15:18] LABS: Chloride 107 mmol/L (98-107); Potassium 4.2 mmoL/L (3.5-5.1); Sodium 140 mmol/L (136-145)
[2022-04-06 15:20] LABS: Alanine Aminotransferase 28 U/L (12-78); Aspartate Amino Transferase 30 U/L (17-59); Blood Urea Nitrogen 12 mg/dl (9-20); Estimated Glomerular Filt Rate 81 ml/min (>60); GFR (African American) 98 ML/MIN (>60)
[2022-04-06 15:21] LABS: Albumin Level 4.2 g/dl (3.5-5.0); Albumin/Globulin Ratio 1.4 (1.1-1.8); Alkaline Phosphatase 67 U/L (38-126); Anion Gap 12.2 mEq/L (5-15); Bilirubin,Total 0.7 mg/dl (0.2-1.3); Calcium 9.4 mg/dl (8.4-10.2); Carbon Dioxide 25 mmol/L (22.0-30.0); Chol/HDL Ratio 3.2 (1-3.5); Cholesterol 143 mg/dl (140-200); Globulin 3.1 g/dL (1.3-3.2); Glucose 104 mg/dl (74-100); HDL Cholesterol 45 mg/dl (40-60); Total Protein,Serum 7.3 g/dl (6.3-8.2); Triglycerides 106 mg/dl (30-150); VLDL Cholesterol 21 mg/dL (0-40)
[2022-04-06 15:32] LABS: Direct LDL Cholesterol 79.72 mg/dL (100-129)
[2022-04-06 15:37] LABS: 25-OH Vitamin D, Total 29.4 ng/mL (30-100)
[2022-04-06 15:38] LABS: C-Reactive Protein 0.5 mg/L (0-4)
[2022-04-06 15:45] LABS: Erythrocyte Sedimentation Rate 5 mm/hr (0-15)
[2022-04-06 15:53] LABS: Thyroid Stimulating Hormone 1.88 uIU/mL (0.465-4.68)
[2022-04-06 16:57] LABS: Prostate Specific Ag Screen 0.3 ng/ml (0.0-4.0)
[2022-04-06 17:16] LABS: Vitamin B12 261 pg/mL (239-931)
[2022-04-08 08:22] LABS: RA Latex Turbid. <10.0 IU/mL (<14.0); Testosterone,Total 308 ng/dL (264-916)
[2022-04-08 14:34] LABS: Anti-Centromere B Antibodies <0.2 AI (0.0-0.9); Anti-DNA (DS) Ab Qn 1 IU/mL (0-9); Anti-Jo-1 <0.2 AI (0.0-0.9); Anti-Smith Antibody <0.2 AI (0.0-0.9); Antichromatin Antibodies <0.2 AI (0.0-0.9); Antiscleroderma-70 Antibodies <0.2 AI (0.0-0.9); RNP Antibodies 0.3 AI (0.0-0.9); Sjogren's Anti-SS-A <0.2 AI (0.0-0.9); Sjogren's Anti-SS-B <0.2 AI (0.0-0.9)
[2022-04-08 16:17] LABS: Lupus Reflex Interpretation Comment: (.); dRVVT 35.2 sec (0.0-47.0)
[2022-04-09 01:21] LABS: Anti-Cyclic Citrullinated Pept 8 units (0-19)
== END ==
PROVIDERS: Visit Provider Physician Assistant
DX: R76.8 Other specified abnormal immunological findings in serum (principal); E55.9 Vitamin D deficiency, unspecified; Z12.5 Encounter for screening for malignant neoplasm of prostate
CPT/HCPCS: 36415; 80053; 80061; 82306; 82607; 84403; 84443; 85025; 85613; 85651; 86140; 86200; 86225; 86235; 86431; G0103

== ENCOUNTER → 2022-04-14 13:56 | Outpatient (CLI) | payer OTHER, SELFPAY ==
--- NOTE | 2022-04-14 14:22 | US_ITS ---
FINAL REPORT CLINICAL HISTORY: thyromegaly FINDINGS: THYROID ULTRASOUND Sonographic images of the thyroid was obtained. The right lobe of the thyroid measures 4.2 x 1.5 x 1.5 cm. Blood flow is noted. No cyst or nodule is identified. The left lobe of the thyroid measures 4.4 x 1.7 x 1.5 cm. Blood flow is noted. No cyst or nodule is identified. The isthmus measures 4 mm. IMPRESSION: Unremarkable thyroid evaluation Reviewed, Interpreted and Dictated by Matt Babcock III, MD Transcribed by Anum Fowler Authenticated and [facility]
[2022-04-14 16:17] LABS: Free Thyroxine Index 2.4 ug/dL (5.93-13.13); T4 (Thyroxine) 7.6 ug/dl (5.53-11.0); Triiodothryronine (T3) Uptake 31 % (23.5-40.5)
[2022-04-14 16:30] LABS: Thyroid Stimulating Hormone 1.31 uIU/mL (0.465-4.68)
[2022-04-16 09:30] LABS: Thyroid Peroxidase Antibodies 11 IU/mL (0-34)
[2022-04-16 12:12] LABS: Anti-DNA (DS) Ab Qn 1 IU/mL (0-9)
[2022-04-17 14:14] LABS: Thyroid Stimulating Immunoglob <0.10 IU/L (0.00-0.55)
== END ==
PROVIDERS: PCP Physician Assistant; Visit Provider Physician Assistant
DX: R76.8 Other specified abnormal immunological findings in serum (principal); E01.0 Iodine-deficiency related diffuse (endemic) goiter
CPT/HCPCS: 36415; 76536; 84436; 84443; 84445; 84479; 86225; 86376

== ENCOUNTER → 2022-06-15 13:52 | Outpatient (CLI) | payer OTHER, SELFPAY | PROVIDERS: Visit Provider Nurse Practitioner Family | DX: G47.33 Obstructive sleep apnea (adult) (pediatric) (principal); G47.8 Other sleep disorders; R53.83 Other fatigue | CPT/HCPCS: 94762 ==